=== PATIENT | female | born 1960 | race Caucasian/White ===

== ENCOUNTER 2018-07-20 11:53 | Inpatient (IN) ==
[2018-07-20] MEDS ORDERED: DEMEROL INJ IVP PRN (14:05)
[2018-07-20] MEDS ORDERED: NS 1000 ML 1,000 ML IV SCH (14:05)
[2018-07-20 14:33] LABS: BASOPHILS % (AUTO) 0.9 % (0.2-1.0); HEMATOCRIT 37.8 % (36.0-47.0); HEMOGLOBIN 13.2 g/dL (12.0-16.0); LYMPHOCYTES # (AUTO) 0.7 X10^3/uL (1.3-2.9); LYMPHOCYTES % (AUTO) 28.6 % (21.0-51.0); MEAN CORPUSCULAR HEMOGLOBIN 34.7 pg (27.0-34.0); MEAN CORPUSCULAR HGB CONC 34.8 g/dL (33.0-35.0); MEAN CORPUSCULAR VOLUME 99.6 fL (80.0-100.0); MEAN PLATELET VOLUME 9.5 fL (7.4-11.0); MONOCYTES # (AUTO) 0.3 x10^3/uL (0.3-0.8); NEUTROPHILS # (AUTO) 1.5 x10^3/uL (2.2-4.8); NEUTROPHILS % (AUTO) 58.5 % (42.0-75.0); PLATELET COUNT 71 X10^3/uL (150.0-450.0); RED CELL DISTRIBUTION WIDTH 13.5 % (11.6-16.5); WHITE BLOOD COUNT 2.5 X10^3/uL (3.6-10.0)
[2018-07-20 14:52] LABS: ALANINE AMINOTRANSFERASE 38 Units/L (12-78); ALBUMIN 3.1 g/dL (3.4-5.0); ALKALINE PHOSPHATASE 104 Units/L (46-116); ASPARTATE AMINO TRANSFERASE 55 Units/L (15-37); BLOOD UREA NITROGEN 9 mg/dL (7-18); CALCIUM 9.2 mg/dL (8.5-10.1); CARBON DIOXIDE 27.2 mmol/L (21-32); CHLORIDE 107 mmol/L (98-107); COR CA(FOR HYPOALB) 9.9 mg/dL (8.5-10.1); COR NA(FOR HYPERGLY) 140 mmol/L (136-145); SODIUM 140 mmol/L (136-145); TOTAL PROTEIN 7.1 g/dL (6.4-8.2); eGFR NON BLACK RACES > 60 (>60)
[2018-07-20] MEDS ORDERED: PEPCID 20 MG IV PREMIX* 20 MG/50 ML BAG IV ONE (15:01)
[2018-07-20] MEDS ORDERED: NS 1000 ML 1,000 ML ONE (15:01)
[2018-07-20] MEDS ORDERED: PROTONIX INJ 40 MG VIAL ONE (15:02)
[2018-07-20] MEDS: PEPCID 20 MG IV PREMIX* 20 MG/50 ML BAG IV SCH ×2 (15:04→20:35)
[2018-07-20] MEDS: PROTONIX INJ 40 MG VIAL IVP SCH ×2 (15:04→20:35)
[2018-07-20 15:58] LABS: BILIRUBIN,URINE NEGATIVE (NEGATIVE); BLOOD/HEMOGLOBIN,URINE NEGATIVE (NEGATIVE); GLUCOSE, URINE NEGATIVE (NEGATIVE); KETONES,URINE NEGATIVE (NEGATIVE); LEUKOCYTE ESTERASE ,URINE 1+ (NEGATIVE); NITRITES,URINE NEGATIVE (NEGATIVE); PROTEIN,URINE NEGATIVE (NEGATIVE); UROBILINOGEN,URINE 1+ (NORMAL)
[2018-07-20 16:04] LABS: APPEARANCE,URINE CLEAR (CLEAR); BACTERIA,URINE NEGATIVE /HPF (NEGATIVE); COLOR,URINE YELLOW (YELLOW); RBC,URINE NONE SEEN /HPF (NONE SEEN); SQUAMOUS EPITHELIAL CELL,UR FEW /HPF (NEGATIVE)
[2018-07-20] MEDS: FLAGYL IV PREMIX 500 MG BAG 500 MG/100 ML BAG IV SCH ×2 (16:04→22:00)
[2018-07-20] MEDS: CIPRO IV 400 MG PREMIX* 400 MG/200 ML IV.SOLN. IV SCH ×2 (17:52→21:35)
[2018-07-20] MEDS: D5 NS 1000 ML 1,000 ML IV SCH (17:52)
[2018-07-20] MEDS ORDERED: D5 NS 1000 ML 1,000 ML IV ONE (17:54)
[2018-07-20 18:00] VITALS: BMI 35.7
[2018-07-20] MEDS ORDERED: BENADRYL CAP 50 MG PO PRN (20:29)
[2018-07-20] MEDS ORDERED: BENADRYL CAP/TAB 25 MG PO ONE (20:31)
[2018-07-20] MEDS: COLACE CAP 100 MG PO SCH (20:34)
[2018-07-20] MEDS: MILK OF MAGNESIA PO SCH (20:35)
[2018-07-21] MEDS: D5 NS 1000 ML 1,000 ML IV SCH ×4 (01:10→20:34)
[2018-07-21] MEDS: ZOFRAN INJ 4 MG VIAL IVP PRN (04:00)
[2018-07-21 05:26] LABS: BASOPHILS % (AUTO) 1.2 % (0.2-1.0); EOSINOPHILS # (AUTO) 0.1 x10^3/uL (0.0-0.2); EOSINOPHILS % (AUTO) 4.2 % (0.9-2.9); HEMATOCRIT 33.9 % (36.0-47.0); HEMOGLOBIN 11.6 g/dL (12.0-16.0); LYMPHOCYTES # (AUTO) 0.7 X10^3/uL (1.3-2.9); LYMPHOCYTES % (AUTO) 39.7 % (21.0-51.0); MEAN CORPUSCULAR HEMOGLOBIN 34.1 pg (27.0-34.0); MEAN CORPUSCULAR HGB CONC 34.3 g/dL (33.0-35.0); MEAN CORPUSCULAR VOLUME 99.4 fL (80.0-100.0); MEAN PLATELET VOLUME 10.1 fL (7.4-11.0); MONOCYTES # (AUTO) 0.2 x10^3/uL (0.3-0.8); MONOCYTES % (AUTO) 11.1 % (0.0-13.0); NEUTROPHILS # (AUTO) 0.7 x10^3/uL (2.2-4.8); NEUTROPHILS % (AUTO) 43.8 % (42.0-75.0); PLATELET COUNT 50 X10^3/uL (150.0-450.0); RED BLOOD COUNT 3.41 X10^6/uL (3.5-5.4); RED CELL DISTRIBUTION WIDTH 13.3 % (11.6-16.5)
[2018-07-21 05:51] LABS: ALANINE AMINOTRANSFERASE 29 Units/L (12-78); ALBUMIN 2.6 g/dL (3.4-5.0); ALKALINE PHOSPHATASE 91 Units/L (46-116); ASPARTATE AMINO TRANSFERASE 41 Units/L (15-37); BLOOD UREA NITROGEN 8 mg/dL (7-18); CALCIUM 8.6 mg/dL (8.5-10.1); CHLORIDE 110 mmol/L (98-107); COR CA(FOR HYPOALB) 9.7 mg/dL (8.5-10.1); COR NA(FOR HYPERGLY) 143 mmol/L (136-145); CREATININE 0.81 mg/dL (0.55-1.02); SODIUM 143 mmol/L (136-145); TOTAL PROTEIN 6.1 g/dL (6.4-8.2); eGFR NON BLACK RACES > 60 (>60)
[2018-07-21] MEDS: FLAGYL IV PREMIX 500 MG BAG 500 MG/100 ML BAG IV SCH ×3 (05:52→21:49)
[2018-07-21 05:59] LABS: PLATELET MORPHOLOGY COMMENT NORMAL (NORMAL); WHITE BLOOD COUNT 1.7 X10^3/uL (3.6-10.0)
[2018-07-21 06:00] LABS: HYPOCHROMASIA SLIGHT
[2018-07-21] MEDS ORDERED: POTASSIUM CHL 40 MEQ/NS 0.45% 500 ML IV PRN (07:45)
[2018-07-21] MEDS ORDERED: POTASSIUM CHL 60 MEQ/NS 0.45% 500 ML IV PRN (07:45)
[2018-07-21] MEDS ORDERED: K-RIDER 10 MEQ/NS 100 ML 10 MEQ/100 ML BAG IV PRN (07:45)
[2018-07-21] MEDS ORDERED: POTASSIUM CHLORIDE LIQ 20 MEQ UDC PO PRN (07:45)
[2018-07-21] MEDS ORDERED: KLOR-CON PO PRN (07:45)
[2018-07-21] MEDS ORDERED: MICRO K EXTEN CAP 10 MEQ PO PRN (07:45)
--- NOTE | 2018-07-21 08:05 | CT ---
HISTORY: Left lower quadrant pain, diarrhea Study: CT abdomen pelvis without contrast Comparison: 07/15/2018 Technique: Axial noncontrast images with coronal and sagittal reformats. Dose reduction procedures were used with mA/kv adjusted for body size. THIS EXAMINATION IS LIMITED DUE TO THE LACK OF INTRAVENOUS CONTRAST. The examination was performed in this manner at the sole discretion of the ordering caregiver. Findings: The lung bases are clear. The liver is normal in size and configuration but demonstrates a slightly nodular margin and prominent caudate lobe suggestive of the possibility of cirrhosis. No focal space-occupying disease to the limitations of an unenhanced examination. The spleen remains enlarged. The adrenal glands and pancreas are within normal limits to the limitations of an unenhanced examination. The kidneys are unobstructed and without stones. No ureteral calculi are identified. Mild calcific atherosclerotic changes present in a nondilated abdominal aorta. No intraperitoneal or retroperitoneal lymphadenopathy of significance is identified. The appendix is surgically absent by history. There are no findings suggestive of colitis. The previously noted pericolonic inflammation surrounding the descending colon and sigmoid colon described on the prior examination is no longer identified. Examination of the pelvis demonstrated no evidence for pelvic masses, pelvic fluid, or pelvic lymphadenopathy. No bladder abnormality is identified. No lytic or blastic skeletal lesions are identified. IMPRESSION: Resolution of the previously noted findings suggestive of acute diverticulitis Splenomegaly Nodular hepatic margin suggestive of the possibility of cirrhosis Reported By:
[2018-07-21] MEDS: PROTONIX INJ 40 MG VIAL IVP SCH ×2 (09:51→21:49)
[2018-07-21] MEDS: PEPCID 20 MG IV PREMIX* 20 MG/50 ML BAG IV SCH ×2 (09:52→21:49)
[2018-07-21] MEDS: K-DUR TAB 20 MEQ PO PRN (09:52)
[2018-07-21] MEDS: CIPRO IV 400 MG PREMIX* 400 MG/200 ML IV.SOLN. IV SCH ×2 (09:53→10:10)
[2018-07-21] MEDS: MILK OF MAGNESIA PO SCH ×2 (10:02→20:34)
[2018-07-21] MEDS: AMBIEN PO SCH ×3 (11:43→21:49)
[2018-07-21] MEDS: SYNTHROID 50 mcg TAB PO SCH (11:43)
[2018-07-21] MEDS: AUGMENTIN 875 MG/125 MG TAB PO SCH ×2 (11:43→23:05)
[2018-07-21] MEDS: COLACE CAP 100 MG PO SCH (20:34)
[2018-07-21] MEDS: XANAX PO PRN (21:50)
[2018-07-22] MEDS: D5 NS 1000 ML 1,000 ML IV SCH ×3 (01:26→19:49)
[2018-07-22] MEDS: ZOFRAN INJ 4 MG VIAL IVP PRN (03:30)
[2018-07-22 05:30] LABS: BASOPHILS % (AUTO) 1.1 % (0.2-1.0); EOSINOPHILS # (AUTO) 0.1 x10^3/uL (0.0-0.2); EOSINOPHILS % (AUTO) 3.8 % (0.9-2.9); HEMATOCRIT 33.1 % (36.0-47.0); HEMOGLOBIN 11.4 g/dL (12.0-16.0); LYMPHOCYTES # (AUTO) 0.6 X10^3/uL (1.3-2.9); LYMPHOCYTES % (AUTO) 41.7 % (21.0-51.0); MEAN CORPUSCULAR HEMOGLOBIN 34.5 pg (27.0-34.0); MEAN CORPUSCULAR HGB CONC 34.3 g/dL (33.0-35.0); MEAN CORPUSCULAR VOLUME 100.5 fL (80.0-100.0); MEAN PLATELET VOLUME 9.8 fL (7.4-11.0); MONOCYTES # (AUTO) 0.2 x10^3/uL (0.3-0.8); MONOCYTES % (AUTO) 11.2 % (0.0-13.0); NEUTROPHILS # (AUTO) 0.6 x10^3/uL (2.2-4.8); NEUTROPHILS % (AUTO) 42.2 % (42.0-75.0); PLATELET COUNT 47 X10^3/uL (150.0-450.0); RED CELL DISTRIBUTION WIDTH 13.5 % (11.6-16.5)
[2018-07-22] MEDS: FLAGYL IV PREMIX 500 MG BAG 500 MG/100 ML BAG IV SCH ×3 (05:34→21:38)
[2018-07-22 05:36] LABS: ALANINE AMINOTRANSFERASE 29 Units/L (12-78); ALBUMIN 2.6 g/dL (3.4-5.0); ALKALINE PHOSPHATASE 89 Units/L (46-116); ASPARTATE AMINO TRANSFERASE 44 Units/L (15-37); BLOOD UREA NITROGEN 7 mg/dL (7-18); CALCIUM 8.5 mg/dL (8.5-10.1); CARBON DIOXIDE 26.1 mmol/L (21-32); CHLORIDE 109 mmol/L (98-107); COR CA(FOR HYPOALB) 9.6 mg/dL (8.5-10.1); COR NA(FOR HYPERGLY) 144 mmol/L (136-145); CREATININE 0.77 mg/dL (0.55-1.02); SODIUM 143 mmol/L (136-145); TOTAL PROTEIN 5.8 g/dL (6.4-8.2); eGFR NON BLACK RACES > 60 (>60)
[2018-07-22 05:43] LABS: WHITE BLOOD COUNT 1.4 X10^3/uL (3.6-10.0)
[2018-07-22] MEDS: SYNTHROID 50 mcg TAB PO SCH (06:04)
[2018-07-22] MEDS: K-DUR TAB 20 MEQ PO PRN (06:05)
[2018-07-22 07:19] LABS: PLATELET MORPHOLOGY COMMENT NORMAL (NORMAL)
[2018-07-22] MEDS: PEPCID 20 MG IV PREMIX* 20 MG/50 ML BAG IV SCH ×2 (08:12→21:38)
[2018-07-22] MEDS: MILK OF MAGNESIA PO SCH ×3 (08:12→21:36)
[2018-07-22] MEDS: PROTONIX INJ 40 MG VIAL IVP SCH ×2 (08:12→21:38)
--- NOTE | 2018-07-22 08:49 | PCM.PROG ---
Progress Note - Progress Note for Day of Date of Exam: 07/21/18 - Subjective Subjective: WAS ADMITTED FOR COMPLAINTS OF DIFFUSE ABDOMINAL PAIN. SHE WAS SEEN IN THE ER OVER THE WEEKEND WHERE A CT CONFIRMED ACUTE DIVERTICULITIS. TODAY, SHE IS ALERT AND ORIENTED, LYING IN BED ON MORNING ROUNDS. SHE CONTINUES WITH COMPLAINTS OF ABDOMINAL PAIN. SHE ALSO REPORTS GENERALIZED WEAKNESS. ON EXAMINATION, HEART IS REGULAR IN RATE AND RHYTHM. BILATERAL LUNGS ARE NOTED WITH DIMINISHED LUNG SOUNDS. ABDOMEN IS ROUND, SOFT, AND NOTED WITH DIFFUSE TENDERNESS TO PALPATION. HER VITALS THIS MORNING ARE 98.0-78-18-96%-136/65. LABS WERE OBTAINED. ABNORMAL LAB VALUES INCLUDE THE FOLLOWING: WBC 1.7, RBC 3.41, HGB 11.6, HCT 33.9, PLT COUNT 50, POTASSIUM 3.4, CHLORIDE 109, GLUCOSE 153, TOTAL BILI 1.10, AST 44, TOTAL PROTEIN 5.8, ALBUMIN 2.6. AN ABDOMEN/PELVIS CT WITHOUT CONTRAST WAS REPEATED THIS AM AND REVEALED: Resolution of the previously noted findings suggestive of acute diverticulitis. Splenomegaly. Nodular hepatic margin suggestive of the possibility of cirrhosis. Grade 2 spondylolisthesis L4 on L5 secondary to bilateral spondylolysis at L4 and degenerative disc disease. PATIENT REPORTS THAT HER BLOOD GLUCOSE LEVELS HAVE FALLEN INTO THE 80. SHE REPORTS SEVERE WEAKNESS ANYTIME IT FALLS BELOW 100. SHE WAS CHANGED TO D5NS IV FLUIDS LAST NIGHT. SHE IS CURRENTLY RECEIVING IV FLAGYL. SHE REFUSED THE CIPRO DUE TO ITCHING. TODAY, WE WILL START AUGMENTIN 875/125MG PO DAILY. OTHERWISE, WE WILL CONTINUE WITH CURRENT PLAN OF CARE. WE PLAN TO FOLLOW UP WITH AM LABS AND CONTINUE TO MONITOR. - Past Medical Family Social History Past Med/Fam/Surg Hx: No changes since H&P Allergies: Allergies codeine Allergy (Verified 07/15/18 14:52) IVP DYE Allergy (Uncoded 08/31/15 22:09) - Review of Systems ROS: No change since H&P - Vital Signs and I&O's Vital Signs: Temperature 98 F Pulse Rate [Left Brachial] 72 Respiratory Rate 20 Blood Pressure [Left Arm] 112/65 Blood Pressure 163/77 O2 Sat by Pulse Oximetry 95 Intake and Output: Intake & Output 07/19/18 07/20/18 07/21/18 07/22/18 11:59 11:59 11:59 11:59 Intake Total 50 / 50 2765 / 2765 Output Total 0 / 0 Balance 5 / 276 - Physical Exam Oriented: Normal Eyes: Normal Ear: Normal Nose: Normal Throat: Normal Respiratory: Diminished Cardiovascular: Normal : Normal Auscultation: Bowel Sounds: Normal Palpation: Normal Tenderness: Diffuse, Mild. negative: Rebound, Guarding, Rigidity Skin: Normal Musculoskeletal: Normal Psychiatric: Normal Mood Description: Calm Affect: Normal Speech Pattern: Clear, Appropriate - Laboratory and Diagnostics Result Diagrams: 07/22/18 03:58 07/22/18 03:58 Labs: Laboratory WBC 1.4 X10^3/uL (3.6-10.0) L* 07/22/18 03:58 RBC 3.30 X10^6/uL (3.5-5.4) L 07/22/18 03:58 Hgb 11.4 g/dL (12.0-16.0) L 07/22/18 03:58 Hct 33.1 % (36.0-47.0) L 07/22/18 03:58 MCV 100.5 fL (80.0-100.0) H 07/22/18 03:58 MCH 34.5 pg (27.0-34.0) H 07/22/18 03:58 MCHC 34.3 g/dL (33.0-35.0) 07/22/18 03:58 RDW 13.5 % (11.6-16.5) 07/22/18 03:58 Plt Count 47 X10^3/uL (150.0-450.0) L 07/22/18 03:58 Plt Count Comment Decreased (ADEQUATE) A 07/22/18 03:58 MPV 9.8 fL (7.4-11.0) 07/22/18 03:58 Neut % (Auto) 42.2 % (42.0-75.0) 07/22/18 03:58 Lymph % (Auto) 41.7 % (21.0-51.0) 07/22/18 03:58 [place] % (Auto) 11.2 % (0.0-13.0) 07/22/18 03:58 Eos % (Auto) 3.8 % (0.9-2.9) H 07/22/18 03:58 Baso % (Auto) 1.1 % (0.2-1.0) H 07/22/18 03:58 Neut # (Auto) 0.6 x10^3/uL (2.2-4.8) L 07/22/18 03:58 Lymph # (Auto) 0.6 X10^3/uL (1.3-2.9) L 07/22/18 03:58 [place] # (Auto) 0.2 x10^3/uL (0.3-0.8) L 07/22/18 03:58 Eos # (Auto) 0.1 x10^3/uL (0.0-0.2) 07/22/18 03:58 Baso # (Auto) 0.0 X10^3/uL (0.0-0.1) 07/22/18 03:58 Absolute Nucleated RBC 0.0 /100WBC 07/22/18 03:58 Total Counted 50 07/22/18 03:58 Neutrophils % (Manual) 48 % (39-76) 07/22/18 03:58 Lymphocytes % (Manual) 42 % (13-43) 07/22/18 03:58 Monocytes % (Manual) 8 % (4-9) 07/22/18 03:58 Eosinophils % (Manual) 2 % (0-6) 07/22/18 03:58 Plt Morphology Comment Normal (NORMAL) 07/22/18 03:58 RBC Morphology Normal (NORMAL) 07/22/18 03:58 Hypochromasia Slight A 07/21/18 04:09 Sodium 143 mmol/L (136-145) 07/22/18 03:58 Corrected Sodium 144 mmol/L (136-145) 07/22/18 03:58 Potassium 3.4 mmol/L (3.5-5.1) L 07/22/18 03:58 Chloride 109 mmol/L (98-107) H 07/22/18 03:58 Carbon Dioxide 26.1 mmol/L (21-32) 07/22/18 03:58 BUN 7 mg/dL (7-18) 07/22/18 03:58 Creatinine 0.77 mg/dL (0.55-1.02) 07/22/18 03:58 Est GFR (MDRD) Af Amer > 60 (>60) 07/22/18 03:58 Est GFR (MDRD) Non-Af > 60 (>60) 07/22/18 03:58 Glucose 153 mg/dL (65-99) H 07/22/18 03:58 POC Glucose (mg/dL) 128 mg/dL (65-99) H 07/22/18 05:51 Hemoglobin A1c 6.0 % 07/21/18 04:09 Calcium 8.5 mg/dL (8.5-10.1) 07/22/18 03:58 Corrected Calcium 9.6 mg/dL (8.5-10.1) 07/22/18 03:58 Magnesium 1.9 mg/dL (1.7-2.9) 07/21/18 04:09 Total Bilirubin 1.10 mg/dL (0.2-1.0) H 07/22/18 03:58 AST 44 Units/L (15-37) H 07/22/18 03:58 ALT 29 Units/L (12-78) 07/22/18 03:58 Alkaline Phosphatase 89 Units/L (46-116) 07/22/18 03:58 Total Protein 5.8 g/dL (6.4-8.2) L 07/22/18 03:58 Albumin 2.6 g/dL (3.4-5.0) L 07/22/18 03:58 Globulin 3.2 g/dL (2.5-4.5) 07/22/18 03:58 Albumin/Globulin Ratio 0.8 Ratio (1.1-2.1) L 07/22/18 03:58 Specimen Type Clean catch urine 07/20/18 15:42 Urine Color Yellow (YELLOW) 07/20/18 15:42 Urine Appearance Clear (CLEAR) 07/20/18 15:42 Urine pH 7.0 (5.0 - 8.0) 07/20/18 15:42 Ur Specific [place] 1.010 (1.000-1.030) 07/20/18 15:42 Urine Protein Negative (NEGATIVE) 07/20/18 15:42 Urine Glucose (UA) Negative (NEGATIVE) 07/20/18 15:42 Urine Ketones Negative (NEGATIVE) 07/20/18 15:42 Urine Occult Blood Negative (NEGATIVE) 07/20/18 15:42 Urine Nitrite Negative (NEGATIVE) 07/20/18 15:42 Urine Bilirubin Negative (NEGATIVE) 07/20/18 15:42 Urine Urobilinogen 1+ (NORMAL) 07/20/18 15:42 Ur Leukocyte Esterase 1+ (NEGATIVE) 07/20/18 15:42 Urine RBC None seen /HPF (NONE SEEN) 07/20/18 15:42 Urine WBC 0-2 /HPF (NONE SEEN) 07/20/18 15:42 Ur Squamous Epith Cells Few /HPF (NEGATIVE) 07/20/18 15:42 Urine Bacteria Negative /HPF (NEGATIVE) 07/20/18 15:42 Ur Culture Indicated? No/not indicated 07/20/18 15:42 - Plan (1) Diverticulitis Status: Acute Plan: AUGMENTIN 875/125 1 TABLET BID, FLAGYL IV, CONTINUE TO MONITOR (2) Abdominal pain Status: Acute Qualifiers: Abdominal location: generalized Qualified Code(s): R10.84 - Generalized abdominal pain Plan: DEMEROL 25MG IV Q4H PRN PAIN, CONTINUE ANTIBIOTICS FOR DIVERTICULITIS, CONTINUE TO MONITOR (3) Generalized weakness Status: Acute (4) Pancytopenia Status: Chronic Plan: CONTINUE TO MONITOR
[2018-07-22] MEDS: XANAX PO PRN ×2 (11:52→21:39)
[2018-07-22] MEDS: AUGMENTIN 875 MG/125 MG TAB PO SCH ×2 (14:40→22:52)
[2018-07-22] MEDS: COLACE CAP 100 MG PO SCH (21:36)
[2018-07-22] MEDS: AMBIEN PO SCH (21:36)
[2018-07-23] MEDS: D5 NS 1000 ML 1,000 ML IV SCH ×3 (05:33→17:47)
[2018-07-23] MEDS: FLAGYL IV PREMIX 500 MG BAG 500 MG/100 ML BAG IV SCH ×3 (05:34→22:47)
[2018-07-23] MEDS: SYNTHROID 50 mcg TAB PO SCH (06:01)
[2018-07-23 06:42] LABS: BASOPHILS % (AUTO) 0.9 % (0.2-1.0); EOSINOPHILS % (AUTO) 3.1 % (0.9-2.9); HEMATOCRIT 29.8 % (36.0-47.0); HEMOGLOBIN 10.5 g/dL (12.0-16.0); LYMPHOCYTES # (AUTO) 0.5 X10^3/uL (1.3-2.9); LYMPHOCYTES % (AUTO) 47.3 % (21.0-51.0); MEAN CORPUSCULAR HEMOGLOBIN 34.9 pg (27.0-34.0); MEAN CORPUSCULAR HGB CONC 35.2 g/dL (33.0-35.0); MEAN CORPUSCULAR VOLUME 99.3 fL (80.0-100.0); MONOCYTES # (AUTO) 0.1 x10^3/uL (0.3-0.8); MONOCYTES % (AUTO) 11.1 % (0.0-13.0); NEUTROPHILS # (AUTO) 0.4 x10^3/uL (2.2-4.8); NEUTROPHILS % (AUTO) 37.6 % (42.0-75.0); PLATELET COUNT 39 X10^3/uL (150.0-450.0); RED CELL DISTRIBUTION WIDTH 13.7 % (11.6-16.5)
[2018-07-23 06:49] LABS: ALANINE AMINOTRANSFERASE 26 Units/L (12-78); ALBUMIN 2.3 g/dL (3.4-5.0); ALKALINE PHOSPHATASE 80 Units/L (46-116); ASPARTATE AMINO TRANSFERASE 38 Units/L (15-37); BLOOD UREA NITROGEN 6 mg/dL (7-18); CALCIUM 8.3 mg/dL (8.5-10.1); CARBON DIOXIDE 26.5 mmol/L (21-32); CHLORIDE 110 mmol/L (98-107); COR CA(FOR HYPOALB) 9.7 mg/dL (8.5-10.1); COR NA(FOR HYPERGLY) 143 mmol/L (136-145); CREATININE 0.77 mg/dL (0.55-1.02); SODIUM 143 mmol/L (136-145); TOTAL PROTEIN 5.3 g/dL (6.4-8.2); eGFR NON BLACK RACES > 60 (>60)
[2018-07-23 07:21] LABS: WHITE BLOOD COUNT 1.1 X10^3/uL (3.6-10.0)
[2018-07-23 07:22] LABS: PLATELET MORPHOLOGY COMMENT NORMAL (NORMAL)
[2018-07-23] MEDS: MILK OF MAGNESIA PO SCH ×2 (09:46→21:03)
[2018-07-23] MEDS: PEPCID 20 MG IV PREMIX* 20 MG/50 ML BAG IV SCH ×2 (09:46→21:01)
[2018-07-23] MEDS: PROTONIX INJ 40 MG VIAL IVP SCH ×2 (09:46→21:01)
[2018-07-23] MEDS: AUGMENTIN 875 MG/125 MG TAB PO SCH ×2 (12:43→22:48)
[2018-07-23] MEDS: K-DUR TAB 20 MEQ PO PRN (21:01)
[2018-07-23] MEDS: AMBIEN PO SCH (21:02)
[2018-07-23] MEDS: COLACE CAP 100 MG PO SCH (21:02)
[2018-07-23] MEDS: XANAX PO PRN (22:52)
[2018-07-24 05:30] LABS: BASOPHILS % (AUTO) 0.7 % (0.2-1.0); EOSINOPHILS % (AUTO) 3.3 % (0.9-2.9); HEMATOCRIT 30.7 % (36.0-47.0); HEMOGLOBIN 10.5 g/dL (12.0-16.0); LYMPHOCYTES # (AUTO) 0.5 X10^3/uL (1.3-2.9); LYMPHOCYTES % (AUTO) 41.1 % (21.0-51.0); MEAN CORPUSCULAR HEMOGLOBIN 34.7 pg (27.0-34.0); MEAN CORPUSCULAR HGB CONC 34.4 g/dL (33.0-35.0); MEAN CORPUSCULAR VOLUME 100.9 fL (80.0-100.0); MEAN PLATELET VOLUME 10.8 fL (7.4-11.0); MONOCYTES # (AUTO) 0.2 x10^3/uL (0.3-0.8); MONOCYTES % (AUTO) 12.7 % (0.0-13.0); NEUTROPHILS # (AUTO) 0.5 x10^3/uL (2.2-4.8); NEUTROPHILS % (AUTO) 42.2 % (42.0-75.0); PLATELET COUNT 40 X10^3/uL (150.0-450.0); RED BLOOD COUNT 3.04 X10^6/uL (3.5-5.4); RED CELL DISTRIBUTION WIDTH 13.7 % (11.6-16.5)
[2018-07-24 05:41] LABS: ALANINE AMINOTRANSFERASE 28 Units/L (12-78); ALBUMIN 2.4 g/dL (3.4-5.0); ALKALINE PHOSPHATASE 89 Units/L (46-116); ASPARTATE AMINO TRANSFERASE 40 Units/L (15-37); BLOOD UREA NITROGEN 7 mg/dL (7-18); CALCIUM 8.6 mg/dL (8.5-10.1); CARBON DIOXIDE 27.9 mmol/L (21-32); CHLORIDE 109 mmol/L (98-107); COR CA(FOR HYPOALB) 9.9 mg/dL (8.5-10.1); COR NA(FOR HYPERGLY) 144 mmol/L (136-145); CREATININE 0.76 mg/dL (0.55-1.02); SODIUM 143 mmol/L (136-145); TOTAL PROTEIN 5.4 g/dL (6.4-8.2); eGFR NON BLACK RACES > 60 (>60)
[2018-07-24 05:51] LABS: WHITE BLOOD COUNT 1.2 X10^3/uL (3.6-10.0)
[2018-07-24] MEDS: FLAGYL IV PREMIX 500 MG BAG 500 MG/100 ML BAG IV SCH ×2 (06:08→13:48)
[2018-07-24] MEDS: SYNTHROID 50 mcg TAB PO SCH (06:08)
[2018-07-24] MEDS: D5 NS 1000 ML 1,000 ML IV SCH ×2 (06:21→06:22)
[2018-07-24 06:40] LABS: PLATELET MORPHOLOGY COMMENT NORMAL (NORMAL)
[2018-07-24] MEDS: PEPCID 20 MG IV PREMIX* 20 MG/50 ML BAG IV SCH (08:45)
[2018-07-24] MEDS: PROTONIX INJ 40 MG VIAL IVP SCH (08:45)
[2018-07-24] MEDS: MILK OF MAGNESIA PO SCH (08:47)
[2018-07-24] MEDS ORDERED: D5 NS 1000 ML 1,000 ML IV SCH (09:22)
[2018-07-24] MEDS ORDERED: AUGMENTIN 875 MG/125 MG TAB PO SCH (09:30)
[2018-07-24 11:55] VITALS: BP 150/79
== END 2018-07-24 15:15 | disposition home or self-care (01) | DRG 392 ==
LOC: MED/SURG 13:39
PROVIDERS: ADMIT Internal Medicine; ATTEND Internal Medicine
DX: R53.1 Weakness; K29.70 Gastritis, unspecified, without bleeding; I10 Essential (primary) hypertension; D61.818 Other pancytopenia; K57.92 Diverticulitis of intestine, part unspecified, without perforation or abscess without bleeding; R19.7 Diarrhea, unspecified; R10.84 Generalized abdominal pain
CPT/HCPCS: 36415; 74176; 80053; 81001; 83036; 83735; 85025; A4216; A4222; C9113; S0028; S0030; J0744; J2405; J7030; J7042

== ENCOUNTER 2022-08-24 15:36 | Inpatient (IN) ==
[2022-08-24 16:09] LABS: HEMOGLOBIN 8.2 g/dL (12.0-16.0); LYMPHOCYTES # (AUTO) 0.6 X10^3/uL (1.3-2.9); MONOCYTES # (AUTO) 0.3 x10^3/uL (0.3-0.8); WHITE BLOOD COUNT 2.9 X10^3/uL (3.6-10.0)
[2022-08-24 16:12] LABS: BASOPHILS % (AUTO) 0.9 % (0.2-1.0); EOSINOPHILS % (AUTO) 0.6 % (0.9-2.9); HEMATOCRIT 24.7 % (36.0-47.0); LYMPHOCYTES % (AUTO) 20.4 % (21.0-51.0); MEAN CORPUSCULAR HEMOGLOBIN 32.5 pg (27.0-34.0); MEAN CORPUSCULAR HGB CONC 33.3 g/dL (33.0-35.0); MEAN CORPUSCULAR VOLUME 97.6 fL (80.0-100.0); MONOCYTES % (AUTO) 9.2 % (0.0-13.0); NEUTROPHILS % (AUTO) 68.9 % (42.0-75.0); RED BLOOD COUNT 2.53 X10^6/uL (3.5-5.4); RED CELL DISTRIBUTION WIDTH 18.2 % (11.6-16.5)
[2022-08-24 16:21] LABS: AMMONIA 39 umol/L (11-32)
--- NOTE | 2022-08-24 16:22 | DR.SOBA ---
HPI Time Seen Time Seen by Provider: 08/24/22 16:10 Primary Care Physician Primary Care Physician: DR REDMOND Complaints Chief Complaint:: PT C/O WORSENING SWELLING IN BILATERAL LOWER EXTREMITIES AND ABDOMEN WELL SHORTNESS OF BREATH OVER THE PAST WEEK. COVID-19 Coronavirus risk:travel/contact w/high risk person: No Has patient experienced Coronavirus symptoms: No Source History Provided: Patient Mode of Arrival Mode of Arrival: Wheelchair Timing Onset of Chief Complaint: 08/24/22 PMH PMH Past Medical History: Yes Past Medical History: Diabetes, GERD, Hypothyroidism, Liver Disease and Seizures Past Surgical History: Yes Surgical History: Appendectomy, , Cholecystectomy and Hysterectomy Past Surgical History Comment: MASS REMOVED FROM SINUSES, LEFT ARM SURGERY X 7 Family History History of Family Medical Conditions: Yes Family Medical History: Diabetes Mellitus Social History Does patient currently use any type of tobacco product: No Have you used tobacco products in the last 12 months: No Type of Tobacco Use: None Does any household member use tobacco: No Alcohol Use: None Do you use any recreational Drugs:: No Lives With: Family Lives Where: Home Travel Risk Coronavirus risk:travel/contact w/high risk person: No Has patient experienced Coronavirus symptoms: No Infectious screening In the last 2 months have you had wt loss of >10#?: NO Have you had fever, night sweats or hemotysis?: No Have you traveled outside the country in the last 6 months?: No Isolation: Standard PE Vital Signs Vitals: Temperature 98.0 F Pulse Rate [Left Radial] 82 Pulse Rate 89 Respiratory Rate 22 Blood Pressure [Right Arm] 144/69 Blood Pressure [Left Arm] 103/55 Blood Pressure 139/63 O2 Sat by Pulse Oximetry 96 ROR Labs Reviewed Result Diagrams: 08/24/22 15:55 08/24/22 15:55 Laboratory: WBC 2.9 X10^3/uL (3.6-10.0) L 08/24/22 15:55 RBC 2.53 X10^6/uL (3.5-5.4) L 08/24/22 15:55 Hgb 8.2 g/dL (12.0-16.0) L 08/24/22 15:55 Hct 24.7 % (36.0-47.0) L 08/24/22 15:55 MCV 97.6 fL (80.0-100.0) 03/27/23 15:55 MCH 32.5 pg (27.0-34.0) 08/24/22 15:55 MCHC 33.3 g/dL (33.0-35.0) 08/24/22 15:55 RDW 18.2 % (11.6-16.5) H 08/24/22 15:55 Plt Count 46 X10^3/uL (150.0-450.0) L 08/24/22 15:55 Plt Count Comment Decreased (ADEQUATE) A 08/24/22 15:55 MPV 10.0 fL (7.4-11.0) 08/24/22 15:55 Neut % (Auto) 68.9 % (42.0-75.0) 08/24/22 15:55 Lymph % (Auto) 20.4 % (21.0-51.0) L 08/24/22 15:55 [place] % (Auto) 9.2 % (0.0-13.0) 08/24/22 15:55 Eos % (Auto) 0.6 % (0.9-2.9) L 08/24/22 15:55 Baso % (Auto) 0.9 % (0.2-1.0) 08/24/22 15:55 Neut # (Auto) 2.0 x10^3/uL (2.2-4.8) L 08/24/22 15:55 Lymph # (Auto) 0.6 X10^3/uL (1.3-2.9) L 08/24/22 15:55 [place] # (Auto) 0.3 x10^3/uL (0.3-0.8) 08/24/22 15:55 Eos # (Auto) 0.0 x10^3/uL (0.0-0.2) 08/24/22 15:55 Baso # (Auto) 0.0 X10^3/uL (0.0-0.1) 08/24/22 15:55 Absolute Nucleated RBC 0.2 /100WBC 08/24/22 15:55 Plt Morphology Comment Normal (NORMAL) 08/24/22 15:55 RBC Morphology Normal (NORMAL) 08/24/22 15:55 Sodium 135 mmol/L (136-145) L 08/24/22 15:55 Corrected Sodium 137 mmol/L (136-145) 08/24/22 15:55 Potassium 3.3 mmol/L (3.5-5.1) L 08/24/22 15:55 Chloride 102 mmol/L (98-107) 08/24/22 15:55 Carbon Dioxide 23.2 mmol/L (21-32) 08/24/22 15:55 BUN 9 mg/dL (7-18) 08/24/22 15:55 Creatinine 0.77 mg/dL (0.55-1.02) 08/24/22 15:55 Est GFR (MDRD) Af Amer > 60 (>60) 08/24/22 15:55 Est GFR (MDRD) Non-Af > 60 (>60) 08/24/22 15:55 Glucose 164 mg/dL (65-99) H 08/24/22 15:55 Calcium 8.0 mg/dL (8.5-10.1) L 08/24/22 15:55 Corrected Calcium 9.8 mg/dL (8.5-10.1) 08/24/22 15:55 Total Bilirubin 8.80 mg/dL (0.2-1.0) H 08/24/22 15:55 AST 94 Units/L (15-37) H 08/24/22 15:55 ALT 27 Units/L (12-78) 08/24/22 15:55 Alkaline Phosphatase 192 Units/L (46-116) H 08/24/22 15:55 Ammonia 39 umol/L (11-32) H 08/24/22 15:55 Creatine Kinase 582 Units/L (26-192) H 08/24/22 15:55 Troponin I High Sens 21.3 ng/L (4.0-60.0) 08/24/22 15:55 B-Natriuretic Peptide 130 pg/mL (0-79) H 08/24/22 15:55 Total Protein 6.0 g/dL (6.4-8.2) L 08/24/22 15:55 Albumin 1.8 g/dL (3.4-5.0) L 08/24/22 15:55 Globulin 4.2 g/dL (2.5-4.5) 08/24/22 15:55 Albumin/Globulin Ratio 0.4 Ratio (1.1-2.1) L 08/24/22 15:55 Amylase 31 Units/L (25-115) 08/24/22 15:55 Lipase 201 Units/L (73-393) 08/24/22 15:55 Opioid Opioid Risk Tool Age ([place] if 16-45): No History of Preadolescent Sexual Abuse: No Total: 0 Total Score Risk Category: Low Risk Copyright: Speedy BUCHANAN predicting aberrant behaviors Discharge Plan Diagnosis Discharge Problem: SOB (shortness of breath), Anasarca, Ascites, Liver disease, Thrombocytopenia Discharge Plan Patient Disposition: 09 ADMITTED INPATIENT Condition: Stable Orders to Discharge Patient Discharge Orders: Transfer (Routine); Ordered 08/24/22 Ordered By: JUN SOLIZ
[2022-08-24 16:26] LABS: ALANINE AMINOTRANSFERASE 27 Units/L (12-78); ALBUMIN 1.8 g/dL (3.4-5.0); ALKALINE PHOSPHATASE 192 Units/L (46-116); ASPARTATE AMINO TRANSFERASE 94 Units/L (15-37); BLOOD UREA NITROGEN 9 mg/dL (7-18); CARBON DIOXIDE 23.2 mmol/L (21-32); CHLORIDE 102 mmol/L (98-107); COR CA(FOR HYPOALB) 9.8 mg/dL (8.5-10.1); COR NA(FOR HYPERGLY) 137 mmol/L (136-145); CREATINE KINASE 582 Units/L (26-192); CREATININE 0.77 mg/dL (0.55-1.02); SODIUM 135 mmol/L (136-145); eGFR NON BLACK RACES > 60 (>60)
[2022-08-24 16:30] LABS: PLATELET MORPHOLOGY COMMENT NORMAL (NORMAL)
[2022-08-24 16:31] LABS: AMYLASE 31 Units/L (25-115); LIPASE 201 Units/L (73-393)
--- NOTE | 2022-08-24 17:59 | CT ---
HISTORYC/O WORSENING SWELLING IN BILATERAL LOWER EXTREMITIES AND ABDOMEN WELL SHORTNESS OF BREATH OVER THE PAST WEEK.STUDYABDOMEN/PELVIS W/O CONCOMPARISONFebruary 2018TECHNIQUENon-contrasted axial CT images of the abdomen and pelvis were obtained and reformatted into coronal and sagittal planes for further evaluation.Radiation dose: 753.51 mGy-cm total DLPFINDINGSLung bases are clear.Stomach appears normal.Lobulated margin of the liver; consistent with cirrhosis.Splenomegaly.Pancreas and adrenal glands are unremarkable.Status post cholecystectomy.Soft tissue density in the left retroperitoneum, adjacent to the aorta, measuring 3.82 x 3.14 cm on axial image 45.No collateral vessels in the right lower retroperitoneum at and below the level of the left kidney.Unremarkable appearance of the kidneys.No hydronephrosis, hydroureter or ureteral calculus.Unremarkable appearance of the urinary bladder.Normal appearance of the small and large bowel.Reproductive structures are unremarkable.No evidence of acute appendicitis.No pneumoperitoneum.Small amount of free fluid in the lower abdomen and be knee each diaphragm.No adenopathy.No acute osseous abnormality.Chronic pars defects at L4 with grade 2 anterolisthesis of L4 on L5.Moderate to severe degenerative disc disease at L4-L5, otherwise, mild degenerative disc changes in the thoracolumbar spine.[id number] multilevel facet degenerative changes.Diffuse body wall edema.IMPRESSION1. Findings are consistent with cirrhosis resulting in splenomegaly secondary to portal hypertension. Collateral vessel formation in the left retroperitoneum. Cirrhosis also results in small volume ascites and diffuse body wall edema.2. Soft tissue density in the left retroperitoneum, adjacent to the aorta, measuring 3.82 x 3.14 cm. Finding could represent a collateral vessel but is not fully characterized on this exam. Recommend a contrast enhanced study for further characterization.Electronically signed by: Pedro Renee (Aug 24, 2022 17:58:19)
[2022-08-24] MEDS ORDERED: ZOFRAN TAB 4 MG PO PRN (18:21)
[2022-08-24] MEDS ORDERED: GLUCOPHAGE ONE (20:21)
--- NOTE | 2022-08-24 20:36 | RAD ---
CHEST, 1 VIEWHISTORY: C/O WORSENING SWELLING IN BILATERAL LOWER EXTREMITIES AND ABDOMEN WELL SHORTNESS OF BREATH OVER THE PAST WEEK.Study: Single view of the chest.Comparison:NoneFindings:The cardiomediastinal silhouette is normal.No focal consolidations, pleural effusions or pneumothorax. Osseous structures demonstrate no acute abnormality.IMPRESSION:1. No acute cardiopulmonary process.Electronically signed by: ANALISA VOSS (Aug 24, 2022 20:35:18)
[2022-08-24] MEDS: XIFAXAN PO SCH (21:18)
[2022-08-24] MEDS: KEPPRA TAB 500 MG PO SCH (21:18)
[2022-08-24] MEDS: ALDACTONE TAB 25 MG PO SCH (21:18)
[2022-08-24] MEDS: GLUCOPHAGE PO SCH ×2 (21:22→21:33)
[2022-08-24] MEDS: CHRONULAC PO SCH (21:23)
[2022-08-24] MEDS: XANAX PO PRN (22:04)
[2022-08-25] MEDS ORDERED: GLUCOPHAGE ONE ×2 (04:46→09:10)
[2022-08-25] MEDS: CHRONULAC PO SCH ×3 (05:45→21:08)
[2022-08-25] MEDS: GLUCOPHAGE PO SCH (06:16)
[2022-08-25 06:41] LABS: BASOPHILS % (AUTO) 0.8 % (0.2-1.0); EOSINOPHILS % (AUTO) 2.5 % (0.9-2.9); LYMPHOCYTES # (AUTO) 0.5 X10^3/uL (1.3-2.9); LYMPHOCYTES % (AUTO) 29.8 % (21.0-51.0); MEAN CORPUSCULAR HEMOGLOBIN 32.4 pg (27.0-34.0); MEAN CORPUSCULAR HGB CONC 33.5 g/dL (33.0-35.0); MEAN CORPUSCULAR VOLUME 96.9 fL (80.0-100.0); MEAN PLATELET VOLUME 9.9 fL (7.4-11.0); MONOCYTES # (AUTO) 0.2 x10^3/uL (0.3-0.8); MONOCYTES % (AUTO) 10.2 % (0.0-13.0); NEUTROPHILS % (AUTO) 56.7 % (42.0-75.0); RED BLOOD COUNT 1.91 X10^6/uL (3.5-5.4); RED CELL DISTRIBUTION WIDTH 18.8 % (11.6-16.5)
[2022-08-25 06:44] LABS: ALANINE AMINOTRANSFERASE 18 Units/L (12-78); ALBUMIN 1.4 g/dL (3.4-5.0); ALKALINE PHOSPHATASE 162 Units/L (46-116); ASPARTATE AMINO TRANSFERASE 59 Units/L (15-37); BLOOD UREA NITROGEN 10 mg/dL (7-18); CALCIUM 7.6 mg/dL (8.5-10.1); CARBON DIOXIDE 27.6 mmol/L (21-32); CHLORIDE 105 mmol/L (98-107); COR CA(FOR HYPOALB) 9.7 mg/dL (8.5-10.1); COR NA(FOR HYPERGLY) 140 mmol/L (136-145); CREATININE 0.73 mg/dL (0.55-1.02); SODIUM 138 mmol/L (136-145); TOTAL PROTEIN 4.7 g/dL (6.4-8.2); eGFR NON BLACK RACES > 60 (>60)
[2022-08-25 06:45] LABS: HEMATOCRIT 18.5 % (36.0-47.0); HEMOGLOBIN 6.2 g/dL (12.0-16.0); WHITE BLOOD COUNT 1.8 X10^3/uL (3.6-10.0)
[2022-08-25] MEDS ORDERED: POTASSIUM CHLORIDE LIQ 20 MEQ UDC PO PRN (08:57)
[2022-08-25] MEDS ORDERED: KLOR-CON PO PRN (08:57)
[2022-08-25] MEDS ORDERED: POTASSIUM CHL 40 MEQ/NS 0.45% 500 ML IV PRN (08:57)
[2022-08-25] MEDS ORDERED: K-RIDER 10 MEQ/NS 100 ML 10 MEQ/100 ML BAG IV PRN (08:57)
[2022-08-25] MEDS ORDERED: POTASSIUM CHL 60 MEQ/NS 0.45% 500 ML IV PRN (08:57)
[2022-08-25] MEDS ORDERED: MICRO K EXTEN CAP 10 MEQ PO PRN (08:57)
[2022-08-25] MEDS: SINGULAIR TAB 10 MG PO SCH (09:44)
[2022-08-25] MEDS: SYNTHROID 75 mcg TAB PO SCH (09:44)
[2022-08-25] MEDS: KEPPRA TAB 500 MG PO SCH ×2 (09:44→21:07)
[2022-08-25] MEDS: PROTONIX TAB 40 MG PO SCH (09:44)
[2022-08-25] MEDS: XIFAXAN PO SCH ×2 (09:44→21:07)
[2022-08-25] MEDS: ALDACTONE TAB 25 MG PO SCH ×2 (09:44→21:07)
[2022-08-25] MEDS ORDERED: NovoLIN R (or HumuLIN R) SC PRN (09:52)
[2022-08-25 11:00] LABS: INR 2.26 (0.8-1.3)
[2022-08-25] MEDS: MAGNESIUM SULFATE 1 GRAM/100 mL PREMIX 1 G/100 ML BAG IV PRN ×2 (11:39→15:01)
[2022-08-25] MEDS ORDERED: NS 500 ML IV 500 ML IV ONE (13:52)
[2022-08-25] MEDS: K-DUR TAB 20 MEQ PO PRN (15:00)
[2022-08-25 15:02] LABS: EOSINOPHILS # (AUTO) 0.1 x10^3/uL (0.0-0.2); EOSINOPHILS % (AUTO) 2.6 % (0.9-2.9); LYMPHOCYTES # (AUTO) 0.6 X10^3/uL (1.3-2.9)
[2022-08-25 15:06] LABS: BASOPHILS % (AUTO) 0.9 % (0.2-1.0); HEMATOCRIT 20.7 % (36.0-47.0); LYMPHOCYTES % (AUTO) 29.5 % (21.0-51.0); MEAN CORPUSCULAR HEMOGLOBIN 32.7 pg (27.0-34.0); MEAN CORPUSCULAR HGB CONC 33.2 g/dL (33.0-35.0); MEAN CORPUSCULAR VOLUME 98.6 fL (80.0-100.0); MEAN PLATELET VOLUME 10.3 fL (7.4-11.0); MONOCYTES # (AUTO) 0.2 x10^3/uL (0.3-0.8); MONOCYTES % (AUTO) 11.3 % (0.0-13.0); NEUTROPHILS # (AUTO) 1.1 x10^3/uL (2.2-4.8); NEUTROPHILS % (AUTO) 55.7 % (42.0-75.0); RED BLOOD COUNT 2.11 X10^6/uL (3.5-5.4); RED CELL DISTRIBUTION WIDTH 18.8 % (11.6-16.5)
[2022-08-25 15:39] LABS: HEMOGLOBIN 6.9 g/dL (12.0-16.0)
[2022-08-25 15:48] LABS: PLATELET MORPHOLOGY COMMENT NORMAL (NORMAL)
[2022-08-25 16:58] VITALS: BMI 38.4
[2022-08-25] MEDS ORDERED: NS 250 ML IV 250 ML IV ONE (18:12)
[2022-08-25 23:35] LABS: HEMOGLOBIN 7.9 g/dL (12.0-16.0)
[2022-08-25 23:45] LABS: HEMATOCRIT 23.5 % (36.0-47.0)
[2022-08-26] MEDS ORDERED: NS 250 ML IV 250 ML IV ONE (00:14)
[2022-08-26] MEDS: CHRONULAC PO SCH ×3 (05:25→21:28)
[2022-08-26 05:58] LABS: EOSINOPHILS # (AUTO) 0.1 x10^3/uL (0.0-0.2); EOSINOPHILS % (AUTO) 3.7 % (0.9-2.9); HEMATOCRIT 22.2 % (36.0-47.0); HEMOGLOBIN 7.4 g/dL (12.0-16.0); LYMPHOCYTES # (AUTO) 0.7 X10^3/uL (1.3-2.9); LYMPHOCYTES % (AUTO) 29.9 % (21.0-51.0); MEAN CORPUSCULAR HEMOGLOBIN 31.4 pg (27.0-34.0); MEAN CORPUSCULAR HGB CONC 33.2 g/dL (33.0-35.0); MEAN CORPUSCULAR VOLUME 94.8 fL (80.0-100.0); MEAN PLATELET VOLUME 10.3 fL (7.4-11.0); MONOCYTES # (AUTO) 0.2 x10^3/uL (0.3-0.8); MONOCYTES % (AUTO) 9.8 % (0.0-13.0); NEUTROPHILS # (AUTO) 1.3 x10^3/uL (2.2-4.8); NEUTROPHILS % (AUTO) 55.6 % (42.0-75.0); RED BLOOD COUNT 2.35 X10^6/uL (3.5-5.4); RED CELL DISTRIBUTION WIDTH 22.4 % (11.6-16.5); WHITE BLOOD COUNT 2.3 X10^3/uL (3.6-10.0)
[2022-08-26 06:01] LABS: AMMONIA 67 umol/L (11-32)
[2022-08-26 06:21] LABS: ALANINE AMINOTRANSFERASE 23 Units/L (12-78); ALBUMIN 1.4 g/dL (3.4-5.0); ALKALINE PHOSPHATASE 185 Units/L (46-116); ASPARTATE AMINO TRANSFERASE 68 Units/L (15-37); BLOOD UREA NITROGEN 9 mg/dL (7-18); CALCIUM 7.4 mg/dL (8.5-10.1); CARBON DIOXIDE 24.2 mmol/L (21-32); CHLORIDE 106 mmol/L (98-107); COR CA(FOR HYPOALB) 9.5 mg/dL (8.5-10.1); COR NA(FOR HYPERGLY) 139 mmol/L (136-145); CREATININE 0.81 mg/dL (0.55-1.02); MAGNESIUM 1.8 mg/dL (2.0-2.9); SODIUM 137 mmol/L (136-145); eGFR NON BLACK RACES > 60 (>60)
[2022-08-26 06:37] LABS: BAND NEUTROPHILS % 4 % (0-10); BASOPHILS % (MANUAL) 1 % (0-1)
[2022-08-26 06:38] LABS: ANISOCYTOSIS 2+; PLATELET MORPHOLOGY COMMENT NORMAL (NORMAL)
[2022-08-26] MEDS: PROTONIX TAB 40 MG PO SCH (09:50)
[2022-08-26] MEDS: ALDACTONE TAB 25 MG PO SCH ×2 (09:50→20:20)
[2022-08-26] MEDS: SYNTHROID 75 mcg TAB PO SCH (09:51)
[2022-08-26] MEDS: XIFAXAN PO SCH ×2 (09:52→20:20)
[2022-08-26] MEDS: SINGULAIR TAB 10 MG PO SCH (09:53)
[2022-08-26] MEDS: KEPPRA TAB 500 MG PO SCH ×2 (10:01→20:20)
[2022-08-26] MEDS: K-DUR TAB 20 MEQ PO PRN (10:02)
[2022-08-26] MEDS: MAGNESIUM SULFATE 1 GRAM/100 mL PREMIX 1 G/100 ML BAG IV PRN ×2 (10:03→16:14)
[2022-08-26] MEDS: ZOFRAN INJ 4 MG VIAL IVP PRN (10:14)
[2022-08-26] MEDS ORDERED: MAGNESIUM SULFATE 1 GRAM/100 mL PREMIX 1 G/100 ML BAG IV ONE (13:33)
[2022-08-26] MEDS: ALBUMIN HUMAN 25%- 100 ML 100 ML IV SCH (14:31)
[2022-08-26] MEDS: ZyrTEC TAB 10 MG PO SCH (14:33)
--- NOTE | 2022-08-26 16:55 | DR.CONSULT ---
Consult - Consultation for Day of: Date: 08/25/22 (GI) - Chief Complaint Chief Complaint: Patient is a 61 y/o who is referred for liver cirrhosis. Patient has complaints of GERD, occasional nausea, and occasional LUQ pain. Denies dysphagia, vomiting, diarrhea, contipation, melena, and hematochezia. Last EGD 06/05/22, showed portal hypertensive gastropathy and gastritis. Denies previous colonoscopy. Patient has a history of fatty liver. Currently on Omperazole and Lactulose at home. Denies history of ETOH use. Abd/pelvis CT showed findings consistent with cirrhosis resulting in splenomegaly secondary to portal hypertension; collateral vessel formation in the left retroperitoneum; cirrhosis also results in small volume ascites and diffuse body wall edema. - Past Medical History Past Medical History: Diabetes, Liver Disease, Hypothyroidism, Seizures, GERD - Past Surgical History Surgical History: Appendectomy, Cholecystectomy, , Hysterectomy - Family History Family Medical History: Diabetes Mellitus, Cancer, Heart Failure, Sudden Cardiac - Social History Does patient currently use any type of tobacco product: No Have you used tobacco products in the last 12 months: No Type of Tobacco Use: None Does any household member use tobacco: No Alcohol Use: None Drug Use: None - Medications Home Medications: codeine Allergy (Verified 07/15/18 14:52) nitrofurantoin [From Macrobid] Adverse Reaction (Verified 08/24/22 18:53) IVP DYE Allergy (Uncoded 08/31/15 22:09) CONTINUE taking the following medications furosemide 40 mg tablet 40 mg PO BID PRN 08/24/22 [History] lactulose 10 gram/15 mL oral syrup 20 g PO TID 08/24/22 [History] levetiracetam 500 mg tablet 500 mg PO BID 08/24/22 [History] levothyroxine 75 mcg tablet 75 mcg PO DAILY 08/24/22 [History] montelukast 10 mg tablet 10 mg PO DAILY 08/24/22 [History] ondansetron 4 mg disintegrating tablet 8 mg PO BID PRN Nausea 08/24/22 [History] rifaximin 550 mg tablet (Xifaxan) 550 mg PO BID 08/24/22 [History] spironolactone 25 mg tablet 50 mg PO BID 08/24/22 [History] - Review of Systems Constitutional: No Symptoms Reported. denies: See HPI, Fever, Chills, Sweats, Weakness, Malaise, Other Eyes: No Symptoms Reported. denies: See HPI, Pain, Vision Change, Conjunctivae Inflammation, Eyelid Inflammation, Redness, Other ENT: No Symptoms Reported. denies: See HPI, Ear Pain, Ear Discharge, Nose Pain, Nose Discharge, Nose Congestion, Mouth Pain, Mouth Swelling, Throat Pain, Throat Swelling, Other Respiratory: Shortness of Breath. denies: No Symptoms Reported, See HPI, Cough, Dry, Hemoptysis, SOB with Excertion, Pleuritic Pain, Sputum, Wheezing, Other Cardiovascular: No Symptoms Reported, Edema (BLE). denies: Chest Pain, See HPI, Palpitations, Orthopnea, Paroxysmal Noc. Dyspnea, Light Headedness, Other Gastrointestinal: Nausea, Abdominal Pain (LUQ, occasional), Other (Dyspepsia). denies: No Symptoms Reported, See HPI, Vomiting, Diarrhea, Constipation, Melena, Hematochezia Genitourinary: No Symptoms Reported. denies: See HPI, Dysuria, Frequency, Incontinence, Hematuria, Retention, Other Musculoskeletal: denies: No Symptoms Reported, See HPI, Shoulder Pain, Arm Pain, Back Pain, Hand Pain, Leg Pain, Foot Pain, Neck Pain, Other Skin: denies: No Symptoms Reported, See HPI, Rash, Lesions, Jaundice, Bruising, Wound, Ecchymosis, Other Neurological: No Symptoms Reported. denies: See HPI, Weakness, Numbness, Incoordination, Change in Speech, Confusion, Seizures, Other - Physical Exam Vital Signs: Temperature 98.8 F Pulse Rate [Left Radial] 94 Pulse Rate 92 Respiratory Rate 20 Blood Pressure [Right Arm] 129/60 Blood Pressure [Left Arm] 103/55 Blood Pressure 139/63 O2 Sat by Pulse Oximetry 94 Oriented: Normal. negative: Time, Person, Place, Not Oriented, Unable to test, Other Eyes: negative: Normal, Blurred Vision, Diplopia, Discharge, Pain, Redness, Photophobia, Other Ear: negative: Normal, Right, Left, Swelling, Ecchymosis, Hemotypanum, Abrasion, Laceration Nose: negative: Normal, Injected, Discharge, Blood, Other Throat: negative: Normal, Tonsillar Hypertrophy, Red, Exudate, Dry, Other Respiratory: Diminished Throughout. negative: Clear Throughout, Rhonchi Throughout, Rales Throughout, Wheezes Throughout, RUL Clear, RML Clear, RLL Clear, JOSE D Clear, LML Clear, LLL Clear, RUL Diminished, RML Diminished, RLL Diminished, JOSE D Diminished, LML Diminished, LLL Diminished, RUL Absent, RML Absent, RLL Absent, JOSE D Absent, LML Absent, LLL Absent, RUL Rhonchi, RML Rhonchi, RLL Rhonchi, JOSE D Rhonchi, LML Rhonchi, LLL Rhonchi, RUL Insp. Wheeze, RML Insp. Wheeze, RLL Insp. Wheeze, JOSE D Insp.Wheeze, LML Insp.Wheeze, LLL Insp.Wheeze, RUL Exp. Wheeze, RML Exp. Wheeze, RLL Exp. Wheeze, JOSE D Exp. Wheeze, LML Exp. Wheeze, LLL Exp. Wheeze, RUL Rales, RML Rales, RLL Rales, JOSE D Rales, LML Rales, LLL Rales, RUL Rub, RML Rub, RLL Rub, JOSE D Rub, LML Rub, LLL Rub, RUL Squeak, RML Squeak, RLL Squeak, JOSE D Squeak, LML Squeak, LLL Squeak Cardiovascular: Normal, Edema (BLE, 2+ pitting). negative: Tachycardia, Bradycardia, Irregular, S3, S4, Systolic, Diastolic, Murmur, Other : negative: Normal, Dysuria, Hematuria, Frequency, Discharge, Testicular Pain, Bleeding, , Other Auscultation: Bowel Sounds: Normal. negative: Bruit, Absent, Increased, Decreased, High Pitched, Other Palpation: negative: Normal, Spleen Enlarged, Liver Enlarged, Mass Pulsatile, Other Tenderness: Normal. negative: Diffuse, RUQ, RLQ, LUQ, LLQ, Epigastric, Periumbilical, Suprapubic, Mild, Moderate, Severe, Rebound, Guarding, Rigidity, Other Skin: Normal. negative: Decreased Turgur, Rash, Papular, Macular, Maculopap ular, Vesicular, Pustular, Petechial, Red, Tender, Hot, Diaphoresis, Wound, Bruising, Ecchymosis, Other Musculoskeletal: Normal. negative: Right, Left, Shoulder, Clavicle, Arm, Elbow, Forearm, Wrist, Hand, Hip, Thigh, Knee, Leg, Ankle, Foot, Back:Thoracic, Back:Lumbar, Back:Midline, Back:Paraspinous, Pelvis, Swelling, Tender, Deformity, Pulse Deficit, Motor Deficit, Sensory Deficit, Instability, Crepitance Psychiatric: Normal. negative: Anxiety, Depression, Agitation, Other Mood Description: Calm. negative: Angry, Apathetic, Depressed, Fearful, Flat, Happy, Hostile, Sad, Suspicious, Withdrawn, Anxious, Appropriate, Labile Affect: Normal. negative: Angry, Anxious, Depressed, Flat, Hysterical, Quiet, Violent Speech Pattern: Clear, Appropriate. negative: Unclear, Inappropriate, Delayed, Slurred, Excessive, Aphasic, Artificially Ventilated, Trach(not ventilated) - Plan Plan: Assessment: 1. Liver cirrhosis, secondary to DANIEL. 2. Hepatic encephalopathy. 3. Anemia. 4. GERD. Plan: Monitor Hgb, transfuse as needed. Monitor LFTs. Continue Protonix, Lactulose, Xifaxin, Spironolactone. If evidence of GI bleed, patient will need repeat EGD. Patient will also need a colonoscopy, once platelets improve, can be done as outpatient. Will refer as outpatient to [place] to liver transplant specialist. Plan D/W Dr. Mcadams - Allergies Allergies/Adverse Reactions: Allergies Allergy/AdvReac Type Severity Reaction Status Date / Time codeine Allergy Verified 07/15/18 14:52 nitrofurantoin AdvReac Verified 08/24/22 18:53 [From Macrobid] IVP DYE Allergy Uncoded 08/31/15 22:09
[2022-08-26] MEDS: XANAX PO PRN (20:20)
[2022-08-26] MEDS: AMBIEN PO PRN (20:21)
--- NOTE | 2022-08-26 20:41 | DR.H&P ---
H&P - History & Physical for Day of: H&P Date: 08/24/22 - Chief Complaint Chief Complaint: ABDOMINAL PAIN, SHORTNESS OF BREATH, LOWER EXTREMITY SWELLING - History of Present Illness History of Present Illness: IS A 61 YEAR OLD PATIENT OF OURS. SHE PRESENTED TO THE ER WITH COMPLAINTS OF BILATERAL LOWER EXTREMITY SWELLING, ABDOMINAL PAIN, AND SHORTNESS OF BREATH. SYMPTOMS STARTED ABOUT A WEEK AGO. PAIN IS LOCATED IN THE LEFT UPPER QUADRANT. SHE DESCRIBES ABDOMINAL PAIN DULL AND INTERMITTENT. SHE RATES PAIN A 6/10. SHE HAS ASSOCIATED NAUSEA, BUT DENIES VOMITING, DYSPHAGIA, DIARRHEA, CONSTIPATION, MELENA, OR HEMATOCHEZIA. HER PMH INCLUDES: GERD, CIRRHOSIS OF LIVER, DM II, HYPOTHYROIDISM, LIVER DISEASE, SEIZURES, APPENDECTOMY, , CHOLECYSTECTOMY, HYSTERECTOMY, MASS REMOVED FROM SINUSES, AND LEFT ARM SURGERY X 7. SHE DENIES PREVIOUS COLONOSCOPY. HER LAST EGD WAS 06/05/22. IT SHOWED PORTAL HYPERTENSIVE GASTROPATHY AND GASTRITIS. ON ARRIVAL, LABS WERE: 98.0-82-22-94%-144/69. LABS WERE OBTAINED. WBC 2.9, RBC 2.53, HGB 8.2, HCT 24.7, PLT COUNT 46, INR 2.26, SODIUM 135, POTASSIUM 3.3, CHLORIDE 102, BUN 9, CREATININE 0.77, GLUCOSE 164, CALCIUM 8.0, TOTAL BILI 8.80, AST 94, ALT 27, ALK PHOS 192, AMMONIA 39, CREATINE KINASE 582, TROPONIN 21.3, BNP 130, TOTAL PROTEIN 6.0, ALBUMIN 1.8, AMYLASE 31, LIPASE 201. AN ABDOMEN/PELVIS CT WAS OBTAINED. FINDINGS WERE CONSISTENT WITH CIRRHOSIS RESULTING IN SPLENOMEGALY SECONDARY TO PORTAL HYPERTENSION; COLLATERAL VESSEL FORMATION IN THE LEFT RETROPERITONEUM; CIRRHOSIS ALSO RESULTS IN SMALL VOLUME ASCITES AND DIFFUSE BALL WALL EDEMA. A CHEST XRAY WAS OBTAINED AND REVEALED: NO ACUTE CARDIOPULMONARY PROCESS. SHE WAS ADMITTED TO THE HOSPITAL FOR FURTHER EVALUATION AND TREATMENT OF SHORTNESS OF BREATH, ASCITES, ANASARCA, LIVER DISEASE, PANCYTOPENIA, AND HYPOKALEMIA. SHE WAS STARTED ON ZOFRAN 4MG IV Q6H PRN, OTBS ACHS, HUMULIN R SLIDING SCALE, THE POTASSIUM AND MAGNESIUM PROTOCOLS, AND HER HOME MEDICATIONS WERE RESUMED. HOME MEDICATIONS INCLUDE: XANAX, ZYRTEC, CHRONULAC, KEPPRA, SYNTHROID, SINGULAIR, PROTONIX, XIFAXAN, ALDACTONE, AND AMBIEN. WE WILL CONSULT , [employer]. OTHERWISE, WE WILL FOLLOW- UP WITH AM LABS AND CONTINUE TO MONITOR. - Past Medical History Past Medical History: Cirrhosis, Diabetes, GERD, Hypothyroidism, Liver Disease, Seizures - Past Surgical History Surgical History: Appendectomy, Cholecystectomy, , Hysterectomy - Family History Family Medical History: Diabetes Mellitus, Cancer, Heart Failure, Sudden Cardiac - Social History Does patient currently use any type of tobacco product: No Have you used tobacco products in the last 12 months: No Type of Tobacco Use: None Does any household member use tobacco: No Alcohol Use: None Drug Use: None - Medications Home Medications: codeine Allergy (Verified 07/15/18 14:52) nitrofurantoin [From Macrobid] Adverse Reaction (Verified 08/24/22 18:53) IVP DYE Allergy (Uncoded 08/31/15 22:09) CONTINUE taking the following medications furosemide 40 mg tablet 40 mg PO BID PRN 08/24/22 [History] lactulose 10 gram/15 mL oral syrup 20 g PO TID 08/24/22 [History] levetiracetam 500 mg tablet 500 mg PO BID 08/24/22 [History] levothyroxine 75 mcg tablet 75 mcg PO DAILY 08/24/22 [History] montelukast 10 mg tablet 10 mg PO DAILY 08/24/22 [History] ondansetron 4 mg disintegrating tablet 8 mg PO BID PRN Nausea 08/24/22 [History] rifaximin 550 mg tablet (Xifaxan) 550 mg PO BID 08/24/22 [History] spironolactone 25 mg tablet 50 mg PO BID 08/24/22 [History] - Review of Systems Constitutional: Weakness Eyes: No Symptoms Reported ENT: No Symptoms Reported Respiratory: Shortness of Breath Cardiovascular: Edema (BILATERAL LOWER EXTREMITIES ) Gastrointestinal: Nausea, Abdominal Pain. denies: Vomiting, Diarrhea, Hematochezia Genitourinary: No Symptoms Reported Musculoskeletal: No Symptoms Reported Skin: No Symptoms Reported Neurological: Weakness - Physical Exam Vital Signs: Temperature 98.0 F Pulse Rate [Left Radial] 84 Pulse Rate 92 Respiratory Rate 18 Blood Pressure [Right Arm] 122/58 Blood Pressure [Left Arm] 113/55 Blood Pressure 139/63 O2 Sat by Pulse Oximetry 96 Oriented: Normal. negative: Time, Person, Place, Not Oriented, Unable to test, Other Eyes: Normal Ear: Normal Nose: Normal Throat: Normal Respiratory: Diminished Throughout Cardiovascular: Edema (BLE 1+ PITTING EDEMA ) : Normal Auscultation: Bowel Sounds: Normal Palpation: Normal Tenderness: LUQ, Moderate Skin: Normal, Decreased Turgur Musculoskeletal: Normal Psychiatric: Normal Mood Description: Calm Affect: Normal Speech Pattern: Clear - Assessment/Plan (1) Pancytopenia Status: Chronic Plan: MONITOR LABS, ZOFRAN 4MG IV Q6H PRN, OTBS ACHS, HUMULIN R SLIDING SCALE, THE POTASSIUM AND MAGNESIUM PROTOCOLS, AND HER HOME MEDICATIONS WERE RESUMED. CONSULT GI (2) Cirrhosis of liver Qualifiers: Hepatic cirrhosis type: unspecified hepatic cirrhosis Ascites presence: with ascites Qualified Code(s): K74.60 - Unspecified cirrhosis of liver; R18.8 - Other ascites Status: Acute (3) Anasarca Status: Acute (4) SOB (shortness of breath) Status: Acute (5) Abdominal pain Qualifiers: Abdominal location: left upper quadrant Qualified Code(s): R10.12 - Left upper quadrant pain Status: Acute (6) Generalized weakness Status: Acute (7) Hypokalemia Status: Acute (8) HTN (hypertension) Qualifiers: Hypertension type: primary hypertension Qualified Code(s): I10 - Essential (primary) hypertension Status: Chronic (9) Seizure disorder Status: Suspected (10) Diabetes mellitus Qualifiers: Diabetes mellitus type: type 2 Diabetes mellitus halfway insulin use: with halfway use Diabetes mellitus complication status: with hyperglycemia Qualified Code(s): E11.65 - Type 2 diabetes mellitus with hyperglycemia; Z79.4 - [facility] (current) use of insulin Status: Chronic - Allergies Allergies/Adverse Reactions: Allergies Allergy/AdvReac Type Severity Reaction Status Date / Time codeine Allergy Verified 07/15/18 14:52 nitrofurantoin AdvReac Verified 08/24/22 18:53 [From Macrobid] IVP DYE Allergy Uncoded 08/31/15 22:09
[2022-08-26] MEDS: ROBITUSSIN DM PO PRN (21:32)
[2022-08-27] MEDS ORDERED: XOPENEX 1.25 MG/3 ML NEBULE NEB ONE (05:02)
[2022-08-27] MEDS: XOPENEX 1.25 MG/3 ML NEBULE NEB PRN ×2 (05:15→08:37)
[2022-08-27] MEDS: ZOFRAN INJ 4 MG VIAL IVP PRN (05:23)
[2022-08-27] MEDS: CHRONULAC PO SCH ×3 (05:24→21:15)
[2022-08-27 06:26] LABS: ALANINE AMINOTRANSFERASE 22 Units/L (12-78); ALBUMIN 1.8 g/dL (3.4-5.0); ALKALINE PHOSPHATASE 192 Units/L (46-116); ASPARTATE AMINO TRANSFERASE 62 Units/L (15-37); BLOOD UREA NITROGEN 8 mg/dL (7-18); CALCIUM 7.7 mg/dL (8.5-10.1); CARBON DIOXIDE 25.7 mmol/L (21-32); CHLORIDE 106 mmol/L (98-107); COR CA(FOR HYPOALB) 9.5 mg/dL (8.5-10.1); COR NA(FOR HYPERGLY) 138 mmol/L (136-145); CREATININE 0.69 mg/dL (0.55-1.02); MAGNESIUM 1.9 mg/dL (2.0-2.9); SODIUM 137 mmol/L (136-145); TOTAL PROTEIN 5.3 g/dL (6.4-8.2); eGFR NON BLACK RACES > 60 (>60)
[2022-08-27 06:41] LABS: BASOPHILS % (AUTO) 1.1 % (0.2-1.0); EOSINOPHILS # (AUTO) 0.1 x10^3/uL (0.0-0.2); EOSINOPHILS % (AUTO) 4.3 % (0.9-2.9); HEMATOCRIT 22.5 % (36.0-47.0); HEMOGLOBIN 7.5 g/dL (12.0-16.0); LYMPHOCYTES # (AUTO) 0.6 X10^3/uL (1.3-2.9); LYMPHOCYTES % (AUTO) 32.4 % (21.0-51.0); MEAN CORPUSCULAR HEMOGLOBIN 31.3 pg (27.0-34.0); MEAN CORPUSCULAR HGB CONC 33.2 g/dL (33.0-35.0); MEAN CORPUSCULAR VOLUME 94.2 fL (80.0-100.0); MONOCYTES # (AUTO) 0.2 x10^3/uL (0.3-0.8); MONOCYTES % (AUTO) 10.5 % (0.0-13.0); NEUTROPHILS % (AUTO) 51.7 % (42.0-75.0); RED BLOOD COUNT 2.39 X10^6/uL (3.5-5.4); RED CELL DISTRIBUTION WIDTH 21.9 % (11.6-16.5)
[2022-08-27 06:43] LABS: AMMONIA 58 umol/L (11-32)
[2022-08-27 06:52] LABS: BAND NEUTROPHILS % 1 % (0-10)
[2022-08-27 06:53] LABS: ANISOCYTOSIS 1+; BURR CELLS SLIGHT; OVALOCYTES SLIGHT; PLATELET MORPHOLOGY COMMENT NORMAL (NORMAL)
[2022-08-27] MEDS ORDERED: PHENERGAN INJ 25 MG IM PRN (08:36)
[2022-08-27] MEDS: SYNTHROID 75 mcg TAB PO SCH (08:53)
[2022-08-27] MEDS: K-DUR TAB 20 MEQ PO PRN (08:53)
[2022-08-27] MEDS: KEPPRA TAB 500 MG PO SCH ×2 (08:53→20:27)
[2022-08-27] MEDS: ALDACTONE TAB 25 MG PO SCH ×2 (08:53→20:27)
[2022-08-27] MEDS: XIFAXAN PO SCH ×2 (08:53→20:27)
[2022-08-27] MEDS: PROTONIX TAB 40 MG PO SCH (08:54)
[2022-08-27] MEDS: ALBUMIN HUMAN 25%- 100 ML 100 ML IV SCH (08:54)
[2022-08-27] MEDS: SINGULAIR TAB 10 MG PO SCH (08:54)
[2022-08-27] MEDS ORDERED: NS 500 ML IV 500 ML IV ONE (09:27)
[2022-08-27] MEDS: MAGNESIUM SULFATE 1 GRAM/100 mL PREMIX 1 G/100 ML BAG IV PRN ×2 (10:40→11:39)
--- NOTE | 2022-08-27 13:07 | PCM.PROG ---
Progress Note - Progress Note for Day of Date of Exam: 08/26/22 - Subjective Subjective: IS A 61 YEAR OLD PATIENT OF OURS. SHE IS CURRENTLY INPATIENT STATUS FOR TREATMENT OF PANCYTOPENIA, CIRRHOSIS OF LIVER, ANASARCA, SHORTNESS OF BREATH, ABDOMINAL PAIN, GENERALIZED WEAKNESS, AND HYPOKALEMIA. SHE RECEIVED ONE UNIT OF PACKED RED BLOOD CELLS YESTERDAY. TODAY, SHE IS ALERT AND ORIENTED, LYING IN BED ON MORNING ROUNDS. SHE CONTINUES TO COMPLAIN OF LUQ PAIN AND OCCASIONAL NAUSEA THIS MORNING. ON EXAMINATION, HEART IS REGULAR IN RATE AND RHYTHM. BILATERAL LUNGS ARE NOTED WITH DIMINISHE LUNG SOUNDS THROUGHOUT. ABDOMEN IS ROUND, SOFT, AND NOTED WITH LUQ TENDERNESS TO PALPATION. NORMAL BOWEL SOUNDS NOTED IN ALL QUADRANTS. BILATERAL LOWER EXTREMITIES NOTED WITH 1+ PITTING EDEMA. HER VITALS THIS MORNING ARE: 98.1-90-20-100%-146/65. LABS WERE OBTAINED. WBC 2.3, RBC 2.35, HGB 7.5, HCT 22.2, PLT COUNT 41, SODIUM 137, POPTASSIUM 3.4, BUN 9, CREATININE 0.81, GLUCOSE 189, CALCIUM 7.4, MAGNEISUM 1.8, TOTAL BILI 5.00, AST 68, ALT 23, ALK PHOS 185, AMMONIA 67, TOTAL PROTEIN 5.0, ALBUMIN 1.4. SHE IS CURRENTLY RECEIVING ZOFRAN 4MG IV Q6H PRN, OTBS ACHS, HUMULIN R SLIDING SCALE, THE POTASSIUM AND MAGNESIUM PROTOCOLS, AND HER HOME MEDICATIONS WERE RESUMED. HOME MEDICATIONS INCLUDE: XANAX, ZYRTEC, CHRONULAC, KEPPRA, SYNTHROID, SINGULAIR, PROTONIX, XIFAXAN, ALDACTONE, AND AMBIEN. WE CONSULTED . HE WILL SEE PATIENT THIS MORNING. TODAY, WE WILL ADD ALBUMIN 25% IV DAILY. OTHERWISE, WE WILL CONTINUE WITH CURRENT PLAN OF CARE TODAY. WE WILL FOLLOW-UP WITH AM LABS AND CONTINUE TO MONITOR. TIME SPENT ON CLINICAL ASSESSMENT, REVIWING LABS AND IMAGING, DECISION MAKING, AND DOCUMENTATION GREATER THAN 45 MINUTES. - Past Medical Family Social History Past Med/Fam/Surg Hx: No changes since H&P Allergies: Allergies codeine Allergy (Verified 07/15/18 14:52) nitrofurantoin [From Macrobid] Adverse Reaction (Verified 08/24/22 18:53) IVP DYE Allergy (Uncoded 08/31/15 22:09) - Review of Systems ROS: No change since H&P - Vital Signs and I&O's Vital Signs: Temperature 98.3 F Pulse Rate [Left Radial] 93 Pulse Rate 98 Respiratory Rate 20 Blood Pressure [Right Arm] 146/74 Blood Pressure [Left Arm] 113/55 Blood Pressure 139/63 O2 Sat by Pulse Oximetry 93 Intake and Output: Intake & Output 08/25/22 08/26/22 08/27/22 08/28/22 11:59 11:59 11:59 11:59 Intake Total 230 / 230 2168 / 2168 1010 / 1010 Output Total 300 / 300 Balance -70 / -70 8 / 2168 1010 / 1010 - Physical Exam Oriented: Normal. negative: Time, Person, Place, Not Oriented, Unable to test, Other Eyes: Normal Ear: Normal Nose: Normal Throat: Normal Respiratory: Generalized, Diminished Cardiovascular: Edema (BLE 1+ PITTING EDEMA ) : Normal Auscultation: Bowel Sounds: Normal Palpation: Normal Tenderness: LUQ, Mild Skin: Normal, Decreased Turgur Musculoskeletal: Normal Psychiatric: Normal Mood Description: Calm Affect: Normal Speech Pattern: Clear, Appropriate - Laboratory and Diagnostics Result Diagrams: 08/27/22 05:41 08/27/22 06:21 Labs: Laboratory WBC 2.0 X10^3/uL (3.6-10.0) L 08/27/22 05:41 RBC 2.39 X10^6/uL (3.5-5.4) L 08/27/22 05:41 Hgb 7.5 g/dL (12.0-16.0) L 08/27/22 05:41 Hct 22.5 % (36.0-47.0) L 08/27/22 05:41 MCV 94.2 fL (80.0-100.0) 08/27/22 05:41 MCH 31.3 pg (27.0-34.0) 08/27/22 05:41 MCHC 33.2 g/dL (33.0-35.0) 08/27/22 05:41 RDW 21.9 % (11.6-16.5) H 08/27/22 05:41 Plt Count 39 X10^3/uL (150.0-450.0) L 08/27/22 05:41 Plt Count Comment Decreased (ADEQUATE) A 08/27/22 05:41 MPV 10.0 fL (7.4-11.0) 08/27/22 05:41 Neut % (Auto) 51.7 % (42.0-75.0) 08/27/22 05:41 Lymph % (Auto) 32.4 % (21.0-51.0) 08/27/22 05:41 Lee % (Auto) 10.5 % (0.0-13.0) 08/27/22 05:41 Eos % (Auto) 4.3 % (0.9-2.9) H 08/27/22 05:41 Baso % (Auto) 1.1 % (0.2-1.0) H 08/27/22 05:41 Neut # (Auto) 1.0 x10^3/uL (2.2-4.8) L 08/27/22 05:41 Lymph # (Auto) 0.6 X10^3/uL (1.3-2.9) L 08/27/22 05:41 Lee # (Auto) 0.2 x10^3/uL (0.3-0.8) L 08/27/22 05:41 Eos # (Auto) 0.1 x10^3/uL (0.0-0.2) 08/27/22 05:41 Baso # (Auto) 0.0 X10^3/uL (0.0-0.1) 08/27/22 05:41 Absolute Nucleated RBC 0.2 /100WBC 08/27/22 05:41 Total Counted 100 08/27/22 05:41 Neutrophils % (Manual) 58 % (39-76) 08/27/22 05:41 Band Neutrophils % 1 % (0-10) 08/27/22 05:41 Lymphocytes % (Manual) 29 % (13-43) 08/27/22 05:41 Monocytes % (Manual) 9 % (4-9) 08/27/22 05:41 Eosinophils % (Manual) 3 % (0-6) 08/27/22 05:41 Basophils % (Manual) 1 % (0-1) 08/26/22 05:13 Plt Morphology Comment Normal (NORMAL) 08/27/22 05:41 RBC Morphology Abnormal (NORMAL) A 08/27/22 05:41 Anisocytosis 1+ A 08/27/22 05:41 Ovalocytes Slight A 08/27/22 05:41 Domonique Cells Slight A 08/27/22 05:41 PT 25.5 SECONDS (11.8-14.3) 08/25/22 05:21 INR Target Range - 08/25/22 05:21 INR 2.26 (0.8-1.3) H 08/25/22 05:21 Sodium 137 mmol/L (136-145) 08/27/22 06:21 Corrected Sodium 138 mmol/L (136-145) 08/27/22 06:21 Potassium 3.8 mmol/L (3.5-5.1) 08/27/22 06:21 Chloride 106 mmol/L (98-107) 08/27/22 06:21 Carbon Dioxide 25.7 mmol/L (21-32) 08/27/22 06:21 BUN 8 mg/dL (7-18) 08/27/22 06:21 Creatinine 0.69 mg/dL (0.55-1.02) 08/27/22 06:21 Est GFR (MDRD) Af Amer > 60 (>60) 08/27/22 06:21 Est GFR (MDRD) Non-Af > 60 (>60) 08/27/22 06:21 Glucose 149 mg/dL (65-99) H 08/27/22 06:21 POC Glucose (mg/dL) 159 mg/dL (65-99) H 08/27/22 04:47 Calcium 7.7 mg/dL (8.5-10.1) L 08/27/22 06:21 Corrected Calcium 9.5 mg/dL (8.5-10.1) 08/27/22 06:21 Magnesium 1.9 mg/dL (2.0-2.9) L 08/27/22 06:21 Total Bilirubin 5.20 mg/dL (0.2-1.0) H 08/27/22 06:21 AST 62 Units/L (15-37) H 08/27/22 06:21 ALT 22 Units/L (12-78) 08/27/22 06:21 Alkaline Phosphatase 192 Units/L (46-116) H 08/27/22 06:21 Ammonia 58 umol/L (11-32) H 08/27/22 06:21 Creatine Kinase 582 Units/L (26-192) H 08/24/22 15:55 Troponin I High Sens 21.3 ng/L (4.0-60.0) 08/24/22 15:55 B-Natriuretic Peptide 130 pg/mL (0-79) H 08/24/22 15:55 Total Protein 5.3 g/dL (6.4-8.2) L 08/27/22 06:21 Albumin 1.8 g/dL (3.4-5.0) L 08/27/22 06:21 Globulin 3.5 g/dL (2.5-4.5) 08/27/22 06:21 Albumin/Globulin Ratio 0.5 Ratio (1.1-2.1) L 08/27/22 06:21 Amylase 31 Units/L (25-115) 08/24/22 15:55 Lipase 201 Units/L (73-393) 08/24/22 15:55 Stl Occult Blood (IFOB) Negative (NEGATIVE) 08/27/22 06:07 Blood Type A POSITIVE 08/25/22 08:50 Antibody Screen Negative 08/25/22 08:50 Crossmatch See Detail 08/25/22 08:50 - Plan (1) Pancytopenia Status: Chronic Plan: MONITOR LABS, ALBUMIN 25% IV DAILY, ZOFRAN 4MG IV Q6H PRN, OTBS ACHS, HUMULIN R SLIDING SCALE, THE POTASSIUM AND MAGNESIUM PROTOCOLS, AND HER HOME MEDICATIONS WERE RESUMED. CONSULT GI (2) Cirrhosis of liver Status: Acute Qualifiers: Hepatic cirrhosis type: unspecified hepatic cirrhosis Ascites presence: with ascites Qualified Code(s): K74.60 - Unspecified cirrhosis of liver; R18.8 - Other ascites (3) Anasarca Status: Acute (4) Hyperammonemia Status: Acute (5) SOB (shortness of breath) Status: Acute (6) Abdominal pain Status: Acute Qualifiers: Abdominal location: left upper quadrant Qualified Code(s): R10.12 - Left upper quadrant pain (7) Generalized weakness Status: Acute (8) Hypokalemia Status: Acute (9) HTN (hypertension) Status: Chronic Qualifiers: Hypertension type: primary hypertension Qualified Code(s): I10 - Essential (primary) hypertension (10) Seizure disorder Status: Suspected (11) Diabetes mellitus Status: Chronic Qualifiers: Diabetes mellitus type: type 2 Diabetes mellitus [facility] insulin use: with senior it business analyst use Diabetes mellitus complication status: with hyperglycemia Qualified Code(s): E11.65 - Type 2 diabetes mellitus with hyperglycemia; Z79.4 - custodial (current) use of insulin
[2022-08-27] MEDS: XANAX PO PRN (20:27)
[2022-08-27] MEDS: ZyrTEC TAB 10 MG PO SCH (20:27)
[2022-08-27] MEDS: AMBIEN PO PRN (20:27)
[2022-08-27] MEDS: ROBITUSSIN DM PO PRN (20:28)
[2022-08-28] MEDS: CHRONULAC PO SCH ×3 (05:33→21:27)
[2022-08-28] MEDS: XOPENEX 1.25 MG/3 ML NEBULE NEB PRN (06:12)
[2022-08-28 06:13] LABS: EOSINOPHILS # (AUTO) 0.1 x10^3/uL (0.0-0.2); EOSINOPHILS % (AUTO) 4.1 % (0.9-2.9); HEMATOCRIT 20.9 % (36.0-47.0); HEMOGLOBIN 7.1 g/dL (12.0-16.0); LYMPHOCYTES # (AUTO) 0.5 X10^3/uL (1.3-2.9); LYMPHOCYTES % (AUTO) 29.6 % (21.0-51.0); MEAN CORPUSCULAR HEMOGLOBIN 32.2 pg (27.0-34.0); MEAN CORPUSCULAR HGB CONC 33.9 g/dL (33.0-35.0); MEAN CORPUSCULAR VOLUME 95.1 fL (80.0-100.0); MEAN PLATELET VOLUME 10.8 fL (7.4-11.0); MONOCYTES # (AUTO) 0.2 x10^3/uL (0.3-0.8); MONOCYTES % (AUTO) 11.6 % (0.0-13.0); NEUTROPHILS # (AUTO) 0.8 x10^3/uL (2.2-4.8); NEUTROPHILS % (AUTO) 53.7 % (42.0-75.0); RED CELL DISTRIBUTION WIDTH 22.5 % (11.6-16.5)
[2022-08-28 06:14] LABS: AMMONIA 56 umol/L (11-32)
[2022-08-28 06:17] LABS: WHITE BLOOD COUNT 1.5 X10^3/uL (3.6-10.0)
[2022-08-28 06:24] LABS: ANISOCYTOSIS 2+; PLATELET MORPHOLOGY COMMENT NORMAL (NORMAL)
[2022-08-28 06:30] LABS: ALANINE AMINOTRANSFERASE 23 Units/L (12-78); ALBUMIN 1.9 g/dL (3.4-5.0); ALKALINE PHOSPHATASE 179 Units/L (46-116); ASPARTATE AMINO TRANSFERASE 58 Units/L (15-37); BLOOD UREA NITROGEN 7 mg/dL (7-18); CALCIUM 7.8 mg/dL (8.5-10.1); CARBON DIOXIDE 25.2 mmol/L (21-32); CHLORIDE 107 mmol/L (98-107); COR CA(FOR HYPOALB) 9.5 mg/dL (8.5-10.1); COR NA(FOR HYPERGLY) 140 mmol/L (136-145); MAGNESIUM 1.9 mg/dL (2.0-2.9); SODIUM 138 mmol/L (136-145); TOTAL PROTEIN 5.1 g/dL (6.4-8.2); eGFR NON BLACK RACES > 60 (>60)
[2022-08-28 06:32] LABS: BURR CELLS SLIGHT; OVALOCYTES SLIGHT; SPHEROCYTES SLIGHT
[2022-08-28] MEDS: XIFAXAN PO SCH ×2 (08:45→21:26)
[2022-08-28] MEDS: PROTONIX TAB 40 MG PO SCH (08:45)
[2022-08-28] MEDS: SINGULAIR TAB 10 MG PO SCH (08:46)
[2022-08-28] MEDS: ALDACTONE TAB 25 MG PO SCH ×2 (08:46→21:26)
[2022-08-28] MEDS: ALBUMIN HUMAN 25%- 100 ML 100 ML IV SCH (08:46)
[2022-08-28] MEDS: KEPPRA TAB 500 MG PO SCH ×2 (08:46→21:26)
[2022-08-28] MEDS: ROBITUSSIN DM PO PRN (08:46)
[2022-08-28] MEDS: SYNTHROID 75 mcg TAB PO SCH (08:46)
[2022-08-28] MEDS ORDERED: TUSSIONEX PENNKINETIC SUSP PO PRN (09:20)
[2022-08-28] MEDS: CORTISPORIN OTIC SUSP AFF EAR SCH ×2 (11:07→21:27)
[2022-08-28] MEDS: MAGNESIUM SULFATE 1 GRAM/100 mL PREMIX 1 G/100 ML BAG IV PRN ×2 (12:28→14:20)
[2022-08-28] MEDS: XOPENEX 1.25 MG/3 ML NEBULE NEB SCH ×2 (13:48→21:15)
[2022-08-28] MEDS: AMBIEN PO PRN (21:27)
[2022-08-28] MEDS: ZyrTEC TAB 10 MG PO SCH (21:27)
[2022-08-28] MEDS: TYLENOL 325 MG TAB PO PRN (21:55)
[2022-08-29 05:46] LABS: AMMONIA 45 umol/L (11-32)
[2022-08-29] MEDS: CHRONULAC PO SCH ×3 (05:51→21:05)
[2022-08-29 05:56] LABS: ALANINE AMINOTRANSFERASE 20 Units/L (12-78); ALBUMIN 2.1 g/dL (3.4-5.0); ALKALINE PHOSPHATASE 151 Units/L (46-116); ASPARTATE AMINO TRANSFERASE 53 Units/L (15-37); BASOPHILS % (AUTO) 0.7 % (0.2-1.0); BLOOD UREA NITROGEN 9 mg/dL (7-18); CARBON DIOXIDE 25.1 mmol/L (21-32); CHLORIDE 106 mmol/L (98-107); COR CA(FOR HYPOALB) 9.5 mg/dL (8.5-10.1); COR NA(FOR HYPERGLY) 137 mmol/L (136-145); CREATININE 0.84 mg/dL (0.55-1.02); EOSINOPHILS % (AUTO) 1.1 % (0.9-2.9); HEMATOCRIT 21.2 % (36.0-47.0); HEMOGLOBIN 7.1 g/dL (12.0-16.0); LYMPHOCYTES # (AUTO) 0.5 X10^3/uL (1.3-2.9); MEAN CORPUSCULAR HEMOGLOBIN 31.8 pg (27.0-34.0); MEAN CORPUSCULAR HGB CONC 33.3 g/dL (33.0-35.0); MEAN CORPUSCULAR VOLUME 95.4 fL (80.0-100.0); MEAN PLATELET VOLUME 10.3 fL (7.4-11.0); MONOCYTES # (AUTO) 0.3 x10^3/uL (0.3-0.8); MONOCYTES % (AUTO) 9.5 % (0.0-13.0); NEUTROPHILS # (AUTO) 1.9 x10^3/uL (2.2-4.8); NEUTROPHILS % (AUTO) 69.7 % (42.0-75.0); RED BLOOD COUNT 2.22 X10^6/uL (3.5-5.4); RED CELL DISTRIBUTION WIDTH 22.8 % (11.6-16.5); SODIUM 136 mmol/L (136-145); TOTAL PROTEIN 5.2 g/dL (6.4-8.2); WHITE BLOOD COUNT 2.7 X10^3/uL (3.6-10.0); eGFR NON BLACK RACES > 60 (>60)
[2022-08-29] MEDS: XOPENEX 1.25 MG/3 ML NEBULE NEB SCH ×3 (06:09→20:26)
[2022-08-29 06:52] LABS: ANISOCYTOSIS 2+; BURR CELLS PRESENT; OVALOCYTES PRESENT; PLATELET MORPHOLOGY COMMENT NORMAL (NORMAL)
[2022-08-29] MEDS: ALBUMIN HUMAN 25%- 100 ML 100 ML IV SCH (08:01)
[2022-08-29] MEDS: CORTISPORIN OTIC SUSP AFF EAR SCH ×3 (08:02→21:05)
[2022-08-29] MEDS: KEPPRA TAB 500 MG PO SCH ×2 (08:03→21:05)
[2022-08-29] MEDS: SINGULAIR TAB 10 MG PO SCH (08:03)
[2022-08-29] MEDS: PROTONIX TAB 40 MG PO SCH (08:03)
[2022-08-29] MEDS: SYNTHROID 75 mcg TAB PO SCH (08:03)
[2022-08-29] MEDS: XIFAXAN PO SCH ×2 (08:03→21:04)
[2022-08-29] MEDS: ALDACTONE TAB 25 MG PO SCH ×2 (08:03→21:05)
[2022-08-29] MEDS ORDERED: APRESOLINE INJ 20 MG VIAL IVP PRN (13:48)
[2022-08-29] MEDS: AMOXIL CAP 500 MG PO SCH ×2 (13:50→21:04)
[2022-08-29] MEDS ORDERED: VALIUM INJ IVP ONE (13:54)
[2022-08-29] MEDS ORDERED: CATAPRES-TTS-2 TD SCH (15:00)
[2022-08-29] MEDS: ZyrTEC TAB 10 MG PO SCH (21:04)
[2022-08-29] MEDS: K-DUR TAB 20 MEQ PO PRN (21:10)
[2022-08-30] MEDS: TYLENOL 325 MG TAB PO PRN (02:11)
[2022-08-30] MEDS: CHRONULAC PO SCH (05:11)
[2022-08-30] MEDS: AMOXIL CAP 500 MG PO SCH (05:12)
[2022-08-30] MEDS: XOPENEX 1.25 MG/3 ML NEBULE NEB SCH (05:28)
[2022-08-30 06:13] LABS: HEMOGLOBIN 7.7 g/dL (12.0-16.0); WHITE BLOOD COUNT 2.4 X10^3/uL (3.6-10.0)
[2022-08-30 06:20] LABS: BASOPHILS % (AUTO) 0.8 % (0.2-1.0); EOSINOPHILS % (AUTO) 1.7 % (0.9-2.9); HEMATOCRIT 23.1 % (36.0-47.0); LYMPHOCYTES # (AUTO) 0.4 X10^3/uL (1.3-2.9); LYMPHOCYTES % (AUTO) 16.5 % (21.0-51.0); MEAN CORPUSCULAR HEMOGLOBIN 31.8 pg (27.0-34.0); MEAN CORPUSCULAR HGB CONC 33.2 g/dL (33.0-35.0); MEAN CORPUSCULAR VOLUME 95.9 fL (80.0-100.0); MEAN PLATELET VOLUME 10.5 fL (7.4-11.0); MONOCYTES # (AUTO) 0.3 x10^3/uL (0.3-0.8); MONOCYTES % (AUTO) 10.3 % (0.0-13.0); NEUTROPHILS # (AUTO) 1.7 x10^3/uL (2.2-4.8); NEUTROPHILS % (AUTO) 70.7 % (42.0-75.0); RED BLOOD COUNT 2.41 X10^6/uL (3.5-5.4); RED CELL DISTRIBUTION WIDTH 22.7 % (11.6-16.5)
[2022-08-30 06:25] LABS: ALANINE AMINOTRANSFERASE 21 Units/L (12-78); ALBUMIN 2.5 g/dL (3.4-5.0); ALKALINE PHOSPHATASE 165 Units/L (46-116); ASPARTATE AMINO TRANSFERASE 51 Units/L (15-37); BLOOD UREA NITROGEN 11 mg/dL (7-18); CALCIUM 8.3 mg/dL (8.5-10.1); CARBON DIOXIDE 27.3 mmol/L (21-32); CHLORIDE 104 mmol/L (98-107); COR CA(FOR HYPOALB) 9.5 mg/dL (8.5-10.1); COR NA(FOR HYPERGLY) 137 mmol/L (136-145); CREATININE 0.81 mg/dL (0.55-1.02); SODIUM 135 mmol/L (136-145); TOTAL PROTEIN 5.6 g/dL (6.4-8.2); eGFR NON BLACK RACES > 60 (>60)
[2022-08-30 06:27] LABS: AMMONIA 72 umol/L (11-32)
[2022-08-30 06:51] LABS: BAND NEUTROPHILS % 3 % (0-10)
[2022-08-30 06:52] LABS: ANISOCYTOSIS 2+; BURR CELLS PRESENT; OVALOCYTES PRESENT; PLATELET MORPHOLOGY COMMENT NORMAL (NORMAL)
[2022-08-30 07:35] VITALS: BP 119/56
[2022-08-30] MEDS: ALBUMIN HUMAN 25%- 100 ML 100 ML IV SCH (08:38)
[2022-08-30] MEDS: ALDACTONE TAB 25 MG PO SCH (08:39)
[2022-08-30] MEDS: PROTONIX TAB 40 MG PO SCH (08:39)
[2022-08-30] MEDS: KEPPRA TAB 500 MG PO SCH (08:39)
[2022-08-30] MEDS: SYNTHROID 75 mcg TAB PO SCH (08:39)
[2022-08-30] MEDS: SINGULAIR TAB 10 MG PO SCH (08:42)
[2022-08-30] MEDS: CORTISPORIN OTIC SUSP AFF EAR SCH (08:43)
[2022-08-30] MEDS: XIFAXAN PO SCH (08:44)
[2022-08-30] MEDS ORDERED: ZOFRAN TAB 4 MG ONE (10:39)
[2022-08-30] MEDS ORDERED: ZOFRAN TAB 4 MG PO PRN (10:41)
== END 2022-08-30 12:20 | disposition home or self-care (01) | DRG 433 ==
LOC: ER 15:36 → MED/SURG 17:36
PROVIDERS: ADMIT Internal Medicine; ATTEND Internal Medicine